=== PATIENT | male | born 1960 | race African-American/Black ===

== ENCOUNTER 2017-10-21 14:28 | Inpatient (IN) | payer OTHER ==
[2017-10-21] MEDS: FUROSEMIDE 40 MG INJ IV (15:17)
[2017-10-21] MEDS: NITROGLYCERIN 2% 1 GM OINT PKT TD (15:17)
[2017-10-21 16:21] LABS: HEMATOCRIT 35.6 % (42.0-52.0); HEMOGLOBIN 11.4 g/dl (14.0-18.0); MEAN CORPUSCULAR HEMOGLOBIN 28.9 pg (29.0-33.0); MEAN CORPUSCULAR VOLUME 90.1 fl (82.0-101.0); MEAN PLATELET VOLUME 11.3 fl (7.4-10.4); PLATELET COUNT 100 10^3/UL (140-415); RED BLOOD COUNT 3.95 10^6/ul (4.70-6.10)
[2017-10-21 16:21] LABS: WHITE BLOOD COUNT 6.6 10^3/ul (4.8-10.8)
[2017-10-21 16:27] LABS: ADD MAN DIFF? YES
[2017-10-21 16:38] LABS: INR 1.17; PROTIME 15.1 Sec (11.9-14.9); PT RATIO 1.2
[2017-10-21 16:39] LABS: PARTIAL THROMBOPLASTIN TIME 34.7 Sec (25.0-35.0)
[2017-10-21 16:47] LABS: ALANINE AMINOTRANSFERASE 35 IU/L (13-69); ALBUMIN 3.7 g/dl (3.3-4.9); ALBUMIN/GLOBULIN RATIO 0.77; ALKALINE PHOSPHATASE 102 IU/L (42-121); ANION GAP 17 (8-16); ASPARTATE AMINO TRANSFERASE 60 IU/L (15-46); BILIRUBIN,INDIRECT 0.8 mg/dl (0-1.1); BILIRUBIN,TOTAL 0.8 mg/dl (0.2-1.3); BLOOD UREA NITROGEN 18 mg/dl (7-20); CALCIUM 9.4 mg/dl (8.4-10.2); CARBON DIOXIDE 20 mmol/L (21-31); CHLORIDE 115 mmol/L (97-110); CREATININE 0.76 mg/dl (0.61-1.24); EOSINOPHILS % (M) 3 % (0-7); GLUCOSE 79 mg/dl (70-220); LYMPHOCYTES #M 2.7 10^3/ul (0.8-2.9); LYMPHOCYTES % (M) 41 % (15-51); MONOCYTE #M 0.3 10^3/ul (0.3-0.9); MONOCYTES % (M) 6 % (0-11); PLATELET ESTIMATE NORMAL; POTASSIUM 4.2 mmol/L (3.5-5.1); REACTIVE LYMPHOCYTES #M 0.2 10^3/ul (0.0-0.0); REACTIVE LYMPHOCYTES% (M) 4 % (0-0); SEGMENTED NEUTROPHILS (M) % 46 % (39-77); SMUDGE%M 9 % (0-0); SODIUM 148 mmol/L (135-144); TOTAL PROTEIN 8.5 g/dl (6.1-8.1)
[2017-10-21 16:58] LABS: B-TYPE NATRIURETIC PEPTIDE 5210 PG/ML (0-125); TROPONIN-I 0.026 ng/ml (0.00-0.12)
[2017-10-21] MEDS ORDERED: ACETAMINOPHEN 325 MG TAB PO ×2 (18:00→18:30)
[2017-10-21] MEDS ORDERED: ONDANSETRON 4 MG INJ IV ×2 (18:00→18:30)
[2017-10-21] MEDS ORDERED: MAGNESIUM HYDROXIDE 30ML CUP PO (18:30)
[2017-10-21] MEDS ORDERED: NACL 0.9% 3 ML SYG IV (18:30)
[2017-10-21] MEDS ORDERED: SALINE 0.65% 45 ML NAS SPRAY NASAL (18:30)
[2017-10-21 18:39] LABS: IRON 128 ug/dl (35-150)
[2017-10-21] MEDS: ASPIRIN 81 MG TAB PO (18:40)
[2017-10-21 18:48] LABS: % IRON SATURATION 33 % SAT (22-52); TOTAL IRON BINDING CAPACITY 392 ug/dl (241-421)
[2017-10-21] MEDS ORDERED: ALBUTEROL 0.083% (NEB) 2.5 MG/3 ML AMP HHN (19:00)
[2017-10-21 22:00] LABS: FOLATE > 20.0 ng/ml (2.8-20.0)
[2017-10-21 22:08] LABS: CREATINE KINASE 67 IU/L (23-200)
[2017-10-21 22:20] LABS: CK INDEX 1.5; TROPONIN-I 0.029 ng/ml (0.00-0.12)
[2017-10-21 22:25] LABS: CK-MB 1.02 ng/ml (0.0-2.4)
[2017-10-22] MEDS: DOCUSATE SODIUM 100 MG CAP PO (05:27)
[2017-10-22] MEDS: FUROSEMIDE 20 MG INJ IV (05:28)
[2017-10-22 07:21] LABS: B-TYPE NATRIURETIC PEPTIDE 5500 PG/ML (0-125)
[2017-10-22 07:24] LABS: TROPONIN-I 0.043 ng/ml (0.00-0.12)
[2017-10-22 08:03] LABS: CREATINE KINASE 71 IU/L (23-200)
[2017-10-22 08:12] LABS: CK INDEX 1.5
[2017-10-22 08:16] LABS: CK-MB 1.03 ng/ml (0.0-2.4)
[2017-10-22] MEDS: ASPIRIN (EC) 81 MG TAB PO (09:32)
[2017-10-22] MEDS: ATORVASTATIN 10 MG TAB PO (09:32)
[2017-10-22] MEDS: LOSARTAN 50 MG TAB PO (09:32)
[2017-10-22] MEDS: SPIRONOLACTONE 25 MG TAB PO (09:32)
[2017-10-22] MEDS: ENOXAPARIN 40 MG/0.4 ML SYG SC (09:34)
[2017-10-22 12:10] LABS: ALANINE AMINOTRANSFERASE 31 IU/L (13-69); ALBUMIN 3.5 g/dl (3.3-4.9); ALBUMIN/GLOBULIN RATIO 0.77; ALKALINE PHOSPHATASE 92 IU/L (42-121); ANION GAP 18 (8-16); ASPARTATE AMINO TRANSFERASE 57 IU/L (15-46); BILIRUBIN,INDIRECT 0.5 mg/dl (0-1.1); BILIRUBIN,TOTAL 0.5 mg/dl (0.2-1.3); BLOOD UREA NITROGEN 23 mg/dl (7-20); CARBON DIOXIDE 20 mmol/L (21-31); CHLORIDE 110 mmol/L (97-110); CREATININE 0.85 mg/dl (0.61-1.24); GLUCOSE 149 mg/dl (70-220); POTASSIUM 4.2 mmol/L (3.5-5.1); SODIUM 144 mmol/L (135-144)
[2017-10-22] MEDS: FUROSEMIDE 40 MG INJ IV (17:59)
[2017-10-23] MEDS: ZOLPIDEM 5 MG TAB PO ×2 (02:48→23:48)
[2017-10-23] MEDS: FUROSEMIDE 40 MG INJ IV (06:19)
[2017-10-23 09:53] LABS: ADD MAN DIFF? NO
[2017-10-23] MEDS: ATORVASTATIN 10 MG TAB PO (10:01)
[2017-10-23] MEDS: ASPIRIN (EC) 81 MG TAB PO (10:01)
[2017-10-23] MEDS: LOSARTAN 50 MG TAB PO (10:02)
[2017-10-23] MEDS: ENOXAPARIN 40 MG/0.4 ML SYG SC (10:06)
[2017-10-23] MEDS: SPIRONOLACTONE 25 MG TAB PO (10:07)
[2017-10-23 10:22] LABS: MAGNESIUM 1.4 mg/dl (1.7-2.5)
[2017-10-23 10:22] LABS: PHOSPHORUS 4.1 mg/dl (2.5-4.9)
[2017-10-23 10:45] LABS: BASOPHIL # 0.1 10^3/ul (0.0-0.1); EOSINOPHILS # 0.1 10^3/ul (0.0-0.5); EOSINOPHILS % 2.3 % (0.0-7.0); HEMOGLOBIN 10.9 g/dl (14.0-18.0); LYMPHOCYTES # 1.3 10^3/ul (0.8-2.9); LYMPHOCYTES % 24.2 % (15.0-51.0); MEAN CORPUSCULAR HEMOGLOBIN 29.5 pg (29.0-33.0); MEAN CORPUSCULAR VOLUME 89.2 fl (82.0-101.0); MEAN PLATELET VOLUME 12.2 fl (7.4-10.4); MONOCYTE # 0.7 10^3/ul (0.3-0.9); MONOCYTES % 12.8 % (0.0-11.0); NEUTROPHIL # 3.1 10^3/ul (1.6-7.5); NEUTROPHILS % 59.5 % (39.0-77.0); PLATELET COUNT 107 10^3/UL (140-415); RED CELL DISTRIBUTION WIDTH 14.1 % (11.5-14.5)
[2017-10-23 10:45] LABS: WHITE BLOOD COUNT 5.2 10^3/ul (4.8-10.8)
[2017-10-23 10:50] LABS: HEMOGLOBIN A1C 5.6 % (0-5.9)
[2017-10-23 11:08] LABS: ALANINE AMINOTRANSFERASE 36 IU/L (13-69); ALBUMIN 3.9 g/dl (3.3-4.9); ALBUMIN/GLOBULIN RATIO 0.82; ALKALINE PHOSPHATASE 110 IU/L (42-121); ANION GAP 19 (8-16); ASPARTATE AMINO TRANSFERASE 71 IU/L (15-46); BILIRUBIN,INDIRECT 0.5 mg/dl (0-1.1); BILIRUBIN,TOTAL 0.5 mg/dl (0.2-1.3); BLOOD UREA NITROGEN 28 mg/dl (7-20); CALCIUM 9.5 mg/dl (8.4-10.2); CARBON DIOXIDE 21 mmol/L (21-31); CHLORIDE 109 mmol/L (97-110); CREATININE 0.95 mg/dl (0.61-1.24); GLUCOSE 131 mg/dl (70-220); SODIUM 145 mmol/L (135-144); TOTAL PROTEIN 8.6 g/dl (6.1-8.1)
[2017-10-23 11:48] LABS: AMPHETAMINE/METHAMPHETAMINE Negative (NEGATIVE); BARBITURATES Negative (NEGATIVE); BENZODIAZEPINES Negative (NEGATIVE); CANNABINOIDS Negative (NEGATIVE); COCAINE Negative (NEGATIVE); OPIATES Negative (NEGATIVE)
[2017-10-23] MEDS: MAGNESIUM SULFATE 3 GM in DEXTROSE 5% 100 ML IVPB (13:52)
[2017-10-23] MEDS: MAGNESIUM SULFATE 2 GM/50 ML 50 ML IVPB (16:49)
[2017-10-23] MEDS: FUROSEMIDE 40 MG TAB PO (18:10)
[2017-10-24] MEDS: FUROSEMIDE 40 MG TAB PO ×2 (06:00→18:00)
[2017-10-24] MEDS: SPIRONOLACTONE 25 MG TAB PO (08:52)
[2017-10-24] MEDS: ATORVASTATIN 10 MG TAB PO (08:52)
[2017-10-24] MEDS: ASPIRIN (EC) 81 MG TAB PO (08:52)
[2017-10-24] MEDS: ENOXAPARIN 40 MG/0.4 ML SYG SC (08:53)
[2017-10-24] MEDS: LOSARTAN 50 MG TAB PO (08:53)
[2017-10-24 12:04] LABS: ADD MAN DIFF? NO
[2017-10-24 12:08] LABS: WHITE BLOOD COUNT 5.9 10^3/ul (4.8-10.8)
[2017-10-24 12:08] LABS: BASOPHILS % 0.5 % (0.0-2.0); EOSINOPHILS # 0.1 10^3/ul (0.0-0.5); EOSINOPHILS % 1.9 % (0.0-7.0); HEMATOCRIT 35.8 % (42.0-52.0); HEMOGLOBIN 11.4 g/dl (14.0-18.0); LYMPHOCYTES # 1.2 10^3/ul (0.8-2.9); LYMPHOCYTES % 20.6 % (15.0-51.0); MEAN CORPUSCULAR HGB CONC 31.8 g/dl (32.0-37.0); MEAN CORPUSCULAR VOLUME 91.1 fl (82.0-101.0); MEAN PLATELET VOLUME 12.5 fl (7.4-10.4); MONOCYTE # 0.9 10^3/ul (0.3-0.9); MONOCYTES % 15.5 % (0.0-11.0); NEUTROPHIL # 3.6 10^3/ul (1.6-7.5); NEUTROPHILS % 61.2 % (39.0-77.0); PLATELET COUNT 118 10^3/UL (140-415); RED BLOOD COUNT 3.93 10^6/ul (4.70-6.10)
[2017-10-24 12:32] LABS: ALANINE AMINOTRANSFERASE 38 IU/L (13-69); ALBUMIN 3.7 g/dl (3.3-4.9); ALBUMIN/GLOBULIN RATIO 0.84; ALKALINE PHOSPHATASE 106 IU/L (42-121); ANION GAP 17 (8-16); ASPARTATE AMINO TRANSFERASE 58 IU/L (15-46); BILIRUBIN,INDIRECT 0.2 mg/dl (0-1.1); BILIRUBIN,TOTAL 0.2 mg/dl (0.2-1.3); BLOOD UREA NITROGEN 31 mg/dl (7-20); CARBON DIOXIDE 22 mmol/L (21-31); CHLORIDE 107 mmol/L (97-110); CREATININE 1.01 mg/dl (0.61-1.24); GLUCOSE 81 mg/dl (70-220); POTASSIUM 4.5 mmol/L (3.5-5.1); SODIUM 141 mmol/L (135-144); TOTAL PROTEIN 8.1 g/dl (6.1-8.1)
[2017-10-24 12:33] LABS: MAGNESIUM 1.8 mg/dl (1.7-2.5)
[2017-10-24 12:33] LABS: PHOSPHORUS 3.8 mg/dl (2.5-4.9)
[2017-10-24] MEDS: MAGNESIUM SULFATE 2 GM/50 ML 50 ML IVPB (18:00)
[2017-10-24] MEDS: ZOLPIDEM 5 MG TAB PO (20:25)
[2017-10-25] MEDS: FUROSEMIDE 40 MG TAB PO ×2 (06:00→18:03)
[2017-10-25 08:02] LABS: ADD MAN DIFF? NO
[2017-10-25 08:10] LABS: BASOPHILS % 0.5 % (0.0-2.0); EOSINOPHILS # 0.2 10^3/ul (0.0-0.5); EOSINOPHILS % 2.6 % (0.0-7.0); HEMATOCRIT 33.3 % (42.0-52.0); HEMOGLOBIN 10.8 g/dl (14.0-18.0); LYMPHOCYTES # 1.3 10^3/ul (0.8-2.9); LYMPHOCYTES % 22.4 % (15.0-51.0); MEAN CORPUSCULAR HEMOGLOBIN 29.1 pg (29.0-33.0); MEAN CORPUSCULAR HGB CONC 32.4 g/dl (32.0-37.0); MEAN CORPUSCULAR VOLUME 89.8 fl (82.0-101.0); MEAN PLATELET VOLUME 12.5 fl (7.4-10.4); MONOCYTE # 0.9 10^3/ul (0.3-0.9); MONOCYTES % 15.5 % (0.0-11.0); NEUTROPHIL # 3.4 10^3/ul (1.6-7.5); NEUTROPHILS % 58.8 % (39.0-77.0); PLATELET COUNT 114 10^3/UL (140-415); RED BLOOD COUNT 3.71 10^6/ul (4.70-6.10); RED CELL DISTRIBUTION WIDTH 14.4 % (11.5-14.5)
[2017-10-25 08:10] LABS: WHITE BLOOD COUNT 5.8 10^3/ul (4.8-10.8)
[2017-10-25 08:29] LABS: ANION GAP 17 (8-16); BLOOD UREA NITROGEN 35 mg/dl (7-20); CALCIUM 9.2 mg/dl (8.4-10.2); CARBON DIOXIDE 22 mmol/L (21-31); CHLORIDE 107 mmol/L (97-110); CREATININE 0.98 mg/dl (0.61-1.24); GLUCOSE 128 mg/dl (70-220); POTASSIUM 4.2 mmol/L (3.5-5.1); SODIUM 142 mmol/L (135-144)
[2017-10-25] MEDS: ENOXAPARIN 40 MG/0.4 ML SYG SC (09:00)
[2017-10-25] MEDS: LOSARTAN 50 MG TAB PO (09:55)
[2017-10-25] MEDS: SPIRONOLACTONE 25 MG TAB PO (09:55)
[2017-10-25] MEDS: ASPIRIN (EC) 81 MG TAB PO (09:55)
[2017-10-25] MEDS: ATORVASTATIN 10 MG TAB PO (09:55)
== END 2017-10-25 18:50 | disposition home or self-care (01) | DRG 292 ==
LOC: TEL 17:45 → E/R 14:28
DX: I11.0 Hypertensive heart disease with heart failure (principal); E87.0 Hyperosmolality and hypernatremia; I42.9 Cardiomyopathy, unspecified; I50.23 Acute on chronic systolic (congestive) heart failure; D64.9 Anemia, unspecified; Z91.14 Patient's other noncompliance with medication regimen; Z87.891 Personal history of nicotine dependence
CPT/HCPCS: 36415; 71045; 76705; 80048; 80053; 80307; 82550; 82553; 82607; 82746; 83036; 83540; 83735; 83880; 84100; 84484; 85025; 85610; 85730; 93005; 96374; 99285-25; J1940

== ENCOUNTER 2018-01-04 21:02 | Inpatient (IN) | payer OTHER ==
[2018-01-04 23:11] LABS: AADO2 Arterial 40.2 mmHg (7.0-24.0); Allen Test ACCEPTAB; Arterial Blood Gas Oxygen Sat 95.9 mmHG (95.0-98.0); Arterial COHb 0.4 % (0.0-3.0); Arterial Fraction of Oxyhgb 95.3 % (93.0-99.0); Arterial HCO3 14.6 mmol/L (22.0-26.0); Arterial MetHb 0.2 % (0.0-1.5); Arterial Total Hemglobin 13.5 g/dl (12.0-18.0); Arterial pCO2 21.2 mmhg (35-45); MODE ROOM AIR; Site Right Radial
[2018-01-04] MEDS: ONDANSETRON 4 MG INJ IV (23:17)
[2018-01-04] MEDS: morphine 4 MG/ML VIAL IV (23:17)
[2018-01-04 23:32] LABS: ADD MAN DIFF? NO
[2018-01-04 23:36] LABS: WHITE BLOOD COUNT 6.5 10^3/ul (4.8-10.8)
[2018-01-04 23:36] LABS: BASOPHILS % 0.6 % (0.0-2.0); EOSINOPHILS % 0.2 % (0.0-7.0); HEMOGLOBIN 12.9 g/dl (14.0-18.0); LYMPHOCYTES % 14.6 % (15.0-51.0); MEAN CORPUSCULAR HEMOGLOBIN 29.9 pg (29.0-33.0); MEAN CORPUSCULAR HGB CONC 32.3 g/dl (32.0-37.0); MEAN CORPUSCULAR VOLUME 92.8 fl (82.0-101.0); MEAN PLATELET VOLUME 10.5 fl (7.4-10.4); MONOCYTE # 0.8 10^3/ul (0.3-0.9); MONOCYTES % 11.7 % (0.0-11.0); NEUTROPHIL # 4.7 10^3/ul (1.6-7.5); NEUTROPHILS % 72.3 % (39.0-77.0); PLATELET COUNT 187 10^3/UL (140-415); RED BLOOD COUNT 4.31 10^6/ul (4.70-6.10); RED CELL DISTRIBUTION WIDTH 18.1 % (11.5-14.5)
[2018-01-04 23:56] LABS: INR 1.18; PROTIME 15.2 Sec (11.9-14.9); PT RATIO 1.2
[2018-01-04 23:57] LABS: PARTIAL THROMBOPLASTIN TIME 32.2 Sec (25.0-35.0)
[2018-01-05 00:11] LABS: LACTIC ACID 3.1 mmol/L (0.5-2.0)
[2018-01-05] MEDS: SODIUM CHLORIDE 0.9% 1L BAG IV* (00:30)
[2018-01-05] MEDS: CEFEPIME 2GM/50 ML (PMX) 50 ML IVPB (00:36)
[2018-01-05 00:49] LABS: ALANINE AMINOTRANSFERASE 33 IU/L (13-69); ALBUMIN 3.8 g/dl (3.3-4.9); ALBUMIN/GLOBULIN RATIO 0.79; ALKALINE PHOSPHATASE 109 IU/L (42-121); ANION GAP 16 (8-16); ASPARTATE AMINO TRANSFERASE 52 IU/L (15-46); BILIRUBIN,INDIRECT 1.1 mg/dl (0-1.1); BILIRUBIN,TOTAL 1.1 mg/dl (0.2-1.3); BLOOD UREA NITROGEN 20 mg/dl (7-20); CALCIUM 9.2 mg/dl (8.4-10.2); CARBON DIOXIDE 20 mmol/L (21-31); CHLORIDE 110 mmol/L (97-110); CREATININE 1.02 mg/dl (0.61-1.24); GLUCOSE 97 mg/dl (70-220); POTASSIUM 4.3 mmol/L (3.5-5.1); SODIUM 142 mmol/L (135-144); TOTAL PROTEIN 8.6 g/dl (6.1-8.1)
[2018-01-05] MEDS: VANCOMYCIN 1 GM (PMX) 250 ML IVPB (01:44)
[2018-01-05] MEDS: ACETAMINOPHEN 500 MG TAB PO (02:17)
[2018-01-05 02:39] LABS: LACTIC ACID 2.9 mmol/L (0.5-2.0)
[2018-01-05] MEDS ORDERED: NITROGLYCERIN (SL) 0.4 MG TAB SL (06:00)
[2018-01-05] MEDS ORDERED: NACL 0.9% 3 ML SYG IV (06:00)
[2018-01-05] MEDS ORDERED: ALBUTEROL/IPRATROPIUM (NEB) 3 ML AMP HHN (06:00)
[2018-01-05 06:34] LABS: ADD MAN DIFF? NO
[2018-01-05 06:37] LABS: BASOPHIL # 0.1 10^3/ul (0.0-0.1); BASOPHILS % 0.8 % (0.0-2.0); EOSINOPHILS % 0.3 % (0.0-7.0); HEMATOCRIT 39.8 % (42.0-52.0); HEMOGLOBIN 12.8 g/dl (14.0-18.0); LYMPHOCYTES # 1.3 10^3/ul (0.8-2.9); LYMPHOCYTES % 17.6 % (15.0-51.0); MEAN CORPUSCULAR HEMOGLOBIN 29.9 pg (29.0-33.0); MEAN CORPUSCULAR HGB CONC 32.2 g/dl (32.0-37.0); MEAN PLATELET VOLUME 10.9 fl (7.4-10.4); MONOCYTE # 1.1 10^3/ul (0.3-0.9); MONOCYTES % 14.2 % (0.0-11.0); NEUTROPHILS % 66.7 % (39.0-77.0); PLATELET COUNT 171 10^3/UL (140-415); RED BLOOD COUNT 4.28 10^6/ul (4.70-6.10); RED CELL DISTRIBUTION WIDTH 18.5 % (11.5-14.5)
[2018-01-05 06:37] LABS: WHITE BLOOD COUNT 7.4 10^3/ul (4.8-10.8)
[2018-01-05 06:55] LABS: CREATINE KINASE 173 IU/L (23-200)
[2018-01-05 06:57] LABS: ALANINE AMINOTRANSFERASE 25 IU/L (13-69); ALBUMIN 3.8 g/dl (3.3-4.9); ALBUMIN/GLOBULIN RATIO 0.77; ALKALINE PHOSPHATASE 107 IU/L (42-121); ANION GAP 21 (8-16); ASPARTATE AMINO TRANSFERASE 57 IU/L (15-46); BILIRUBIN,INDIRECT 1.4 mg/dl (0-1.1); BILIRUBIN,TOTAL 1.6 mg/dl (0.2-1.3); BLOOD UREA NITROGEN 23 mg/dl (7-20); CALCIUM 8.9 mg/dl (8.4-10.2); CARBON DIOXIDE 15 mmol/L (21-31); CHLORIDE 111 mmol/L (97-110); CREATININE 1.16 mg/dl (0.61-1.24); GLUCOSE 74 mg/dl (70-220); POTASSIUM 4.7 mmol/L (3.5-5.1); SODIUM 142 mmol/L (135-144); TOTAL PROTEIN 8.7 g/dl (6.1-8.1)
[2018-01-05 07:08] LABS: CK INDEX 1.1; CK-MB 1.88 ng/ml (0.0-2.4); TROPONIN-I 0.076 ng/ml (0.00-0.12)
[2018-01-05] MEDS: HEPARIN 5,000 UNIT/0.5 ML VIAL SC ×2 (09:00→20:29)
[2018-01-05] MEDS: ASPIRIN (EC) 81 MG TAB PO (09:15)
[2018-01-05] MEDS: FUROSEMIDE 40 MG TAB PO ×2 (09:16→16:42)
[2018-01-05] MEDS: LOSARTAN 50 MG TAB PO (09:16)
[2018-01-05] MEDS: SPIRONOLACTONE 25 MG TAB PO (09:16)
[2018-01-05] MEDS: LEVOFLOXACIN 500MG/D5W (PMX) 100 ML IVPB (09:17)
[2018-01-05] MEDS: morphine 2 MG INJ IV (10:53)
[2018-01-05] MEDS ORDERED: HYDROmorphONE 0.5 MG/0.5 ML SYG IV (12:00)
[2018-01-05] MEDS: HYDROmorphONE 2 MG/ML SYG IV (12:05)
[2018-01-05] MEDS: ONDANSETRON 4 MG INJ IV ×2 (12:05→20:09)
[2018-01-05 14:26] LABS: LIPASE 67 U/L (23-300)
[2018-01-05 15:39] LABS: CREATINE KINASE 149 IU/L (23-200)
[2018-01-05 15:47] LABS: LIPASE 55 U/L (23-300)
[2018-01-05 15:52] LABS: CK INDEX 1.3; TROPONIN-I 0.062 ng/ml (0.00-0.12)
[2018-01-05 16:12] LABS: CK-MB 1.89 ng/ml (0.0-2.4)
[2018-01-05] MEDS: SOD CHLORIDE 0.9% 1,000 ML IV (16:40)
[2018-01-05] MEDS: PIPER-TAZO 3.375 GM IV (PMX) 100 ML IVPB ×2 (16:40→22:19)
[2018-01-05] MEDS ORDERED: VANCOMYCIN IV PER PHARMACY XX (17:30)
[2018-01-05] MEDS: VANCOMYCIN 1 GM 250 ML IVPB (20:08)
[2018-01-05] MEDS: ATORVASTATIN 10 MG TAB PO (20:30)
[2018-01-06 01:56] LABS: ADD UMIC YES; UR ASCORBIC ACID NEGATIVE (NEGATIVE); UR BILIRUBIN (Dip) NEGATIVE (NEGATIVE); UR BLOOD (Dip) NEGATIVE (NEGATIVE); UR CLARITY SLIGHTLY CLOUDY (CLEAR); UR COLOR AMBER (YELLOW); UR GLUCOSE (Dip) NEGATIVE (NEGATIVE); UR KETONES (Dip) TRACE mg/dL (NEGATIVE); UR LEUKOCYTE ESTERASE (Dip) NEGATIVE Leu/ul (NEGATIVE); UR NITRITE (Dip) NEGATIVE (NEGATIVE); UR RBC 1 /HPF (0-5); UR SQUAMOUS EPITHELIAL CELL FEW /HPF (FEW); UR TOTAL PROTEIN (Dip) 2+ mg/dl (NEGATIVE); UR UROBILINOGEN (Dip) 1+ mg/dL (NEGATIVE); UR WBC 3 /HPF (0-5)
[2018-01-06] MEDS: ONDANSETRON 4 MG INJ IV (04:27)
[2018-01-06] MEDS: HYDROmorphONE 2 MG/ML SYG IV (04:30)
[2018-01-06] MEDS: SOD CHLORIDE 0.9% 1,000 ML IV ×4 (05:50→20:00)
[2018-01-06 05:51] LABS: WHITE BLOOD COUNT 6.6 10^3/ul (4.8-10.8)
[2018-01-06 05:51] LABS: ADD MAN DIFF? NO; BASOPHILS % 0.3 % (0.0-2.0); HEMATOCRIT 37.8 % (42.0-52.0); HEMOGLOBIN 12.2 g/dl (14.0-18.0); LYMPHOCYTES % 15.4 % (15.0-51.0); MEAN CORPUSCULAR HEMOGLOBIN 29.7 pg (29.0-33.0); MEAN CORPUSCULAR HGB CONC 32.3 g/dl (32.0-37.0); MEAN PLATELET VOLUME 11.5 fl (7.4-10.4); MONOCYTES % 14.7 % (0.0-11.0); NEUTROPHIL # 4.6 10^3/ul (1.6-7.5); NEUTROPHILS % 69.1 % (39.0-77.0); PLATELET COUNT 180 10^3/UL (140-415); RED BLOOD COUNT 4.11 10^6/ul (4.70-6.10); RED CELL DISTRIBUTION WIDTH 18.2 % (11.5-14.5)
[2018-01-06] MEDS: FUROSEMIDE 40 MG TAB PO (05:57)
[2018-01-06] MEDS: PIPER-TAZO 3.375 GM IV (PMX) 100 ML IVPB ×3 (05:57→21:57)
[2018-01-06 06:24] LABS: LACTIC ACID 3.5 mmol/L (0.5-2.0)
[2018-01-06 06:27] LABS: ANION GAP 14 (8-16); BLOOD UREA NITROGEN 43 mg/dl (7-20); CALCIUM 8.2 mg/dl (8.4-10.2); CARBON DIOXIDE 19 mmol/L (21-31); CHLORIDE 106 mmol/L (97-110); CREATININE 2.07 mg/dl (0.61-1.24); GLUCOSE 129 mg/dl (70-220); MAGNESIUM 1.2 mg/dl (1.7-2.5); PHOSPHORUS 4.8 mg/dl (2.5-4.9); POTASSIUM 5.5 mmol/L (3.5-5.1); SODIUM 133 mmol/L (135-144)
[2018-01-06] MEDS: VANCOMYCIN 1 GM 250 ML IVPB ×2 (06:34→18:25)
[2018-01-06] MEDS: LOSARTAN 50 MG TAB PO (09:00)
[2018-01-06] MEDS: HEPARIN 5,000 UNIT/0.5 ML VIAL SC ×2 (09:00→21:58)
[2018-01-06] MEDS: ASPIRIN (EC) 81 MG TAB PO (09:07)
[2018-01-06] MEDS: SPIRONOLACTONE 25 MG TAB PO (09:07)
[2018-01-06] MEDS: NICOTINE (21 MG/24 HR) PATCH TRANSDERM (09:08)
[2018-01-06] MEDS: MAGNESIUM SULFATE 4 GM/100 ML 100 ML IVPB (14:03)
[2018-01-06 17:25] LABS: ANION GAP 16 (8-16); BLOOD UREA NITROGEN 56 mg/dl (7-20); CALCIUM 7.7 mg/dl (8.4-10.2); CARBON DIOXIDE 17 mmol/L (21-31); CHLORIDE 104 mmol/L (97-110); CREATININE 2.46 mg/dl (0.61-1.24); GLUCOSE 120 mg/dl (70-220); POTASSIUM 4.9 mmol/L (3.5-5.1); SODIUM 132 mmol/L (135-144)
[2018-01-06 17:30] LABS: VANCOMYCIN,TROUGH 12.3 ug/ml (10.0-20.0)
[2018-01-06] MEDS: NORepinephrine 8MG/250 ML (PMX 250 ML IV (17:35)
[2018-01-06] MEDS: ATORVASTATIN 10 MG TAB PO (21:57)
[2018-01-06] MEDS: ACETAMINOPHEN 325 MG TAB PO (22:07)
[2018-01-07 06:09] LABS: ADD MAN DIFF? NO
[2018-01-07] MEDS: VANCOMYCIN 1 GM 250 ML IVPB (06:12)
[2018-01-07] MEDS: PIPER-TAZO 3.375 GM IV (PMX) 100 ML IVPB (06:12)
[2018-01-07] MEDS: ACETAMINOPHEN 325 MG TAB PO (06:12)
[2018-01-07] MEDS: SOD CHLORIDE 0.9% 1,000 ML IV (06:16)
[2018-01-07 06:18] LABS: BASOPHILS % 0.4 % (0.0-2.0); EOSINOPHILS # 0.1 10^3/ul (0.0-0.5); EOSINOPHILS % 1.1 % (0.0-7.0); HEMATOCRIT 36.1 % (42.0-52.0); HEMOGLOBIN 11.6 g/dl (14.0-18.0); LYMPHOCYTES # 1.5 10^3/ul (0.8-2.9); LYMPHOCYTES % 18.7 % (15.0-51.0); MEAN CORPUSCULAR HEMOGLOBIN 29.5 pg (29.0-33.0); MEAN CORPUSCULAR HGB CONC 32.1 g/dl (32.0-37.0); MEAN CORPUSCULAR VOLUME 91.9 fl (82.0-101.0); MEAN PLATELET VOLUME 11.5 fl (7.4-10.4); MONOCYTES % 12.9 % (0.0-11.0); NEUTROPHIL # 5.4 10^3/ul (1.6-7.5); NEUTROPHILS % 66.5 % (39.0-77.0); PLATELET COUNT 174 10^3/UL (140-415); RED BLOOD COUNT 3.93 10^6/ul (4.70-6.10); RED CELL DISTRIBUTION WIDTH 17.7 % (11.5-14.5)
[2018-01-07 06:23] LABS: PHOSPHORUS 3.1 mg/dl (2.5-4.9)
[2018-01-07 06:33] LABS: ANION GAP 12 (8-16); BLOOD UREA NITROGEN 59 mg/dl (7-20); CALCIUM 7.7 mg/dl (8.4-10.2); CARBON DIOXIDE 22 mmol/L (21-31); CHLORIDE 105 mmol/L (97-110); CREATININE 2.35 mg/dl (0.61-1.24); GLUCOSE 126 mg/dl (70-220); POTASSIUM 4.3 mmol/L (3.5-5.1); SODIUM 135 mmol/L (135-144)
[2018-01-07 06:45] LABS: LACTIC ACID 2.2 mmol/L (0.5-2.0)
[2018-01-07] MEDS: NICOTINE (21 MG/24 HR) PATCH TRANSDERM (08:58)
[2018-01-07] MEDS: ASPIRIN (EC) 81 MG TAB PO (08:59)
[2018-01-07] MEDS: HEPARIN 5,000 UNIT/0.5 ML VIAL SC ×2 (09:00→21:21)
[2018-01-07] MEDS: CEFEPIME 1GM/50 ML (PMX) 50 ML IVPB (11:00)
[2018-01-07] MEDS: SOD CHLORIDE 0.45% 1,000 ML IV ×2 (11:00→21:24)
[2018-01-07] MEDS: LINEZOLID 600 MG/D5W (PMX) 300 ML IVPB ×2 (12:30→22:17)
[2018-01-07] MEDS: HYDROmorphONE 2 MG/ML SYG IV (15:54)
[2018-01-07] MEDS: ATORVASTATIN 10 MG TAB PO (21:17)
[2018-01-08] MEDS: SOD CHLORIDE 0.45% 1,000 ML IV ×2 (06:30→16:30)
[2018-01-08 07:29] LABS: ADD MAN DIFF? NO
[2018-01-08 07:32] LABS: WHITE BLOOD COUNT 6.5 10^3/ul (4.8-10.8)
[2018-01-08 07:32] LABS: BASOPHILS % 0.3 % (0.0-2.0); EOSINOPHILS # 0.2 10^3/ul (0.0-0.5); EOSINOPHILS % 2.3 % (0.0-7.0); HEMATOCRIT 34.5 % (42.0-52.0); HEMOGLOBIN 11.3 g/dl (14.0-18.0); LYMPHOCYTES # 1.6 10^3/ul (0.8-2.9); LYMPHOCYTES % 24.3 % (15.0-51.0); MEAN CORPUSCULAR HEMOGLOBIN 30.1 pg (29.0-33.0); MEAN CORPUSCULAR HGB CONC 32.8 g/dl (32.0-37.0); MEAN CORPUSCULAR VOLUME 91.8 fl (82.0-101.0); MEAN PLATELET VOLUME 11.2 fl (7.4-10.4); MONOCYTE # 0.8 10^3/ul (0.3-0.9); MONOCYTES % 11.9 % (0.0-11.0); NEUTROPHIL # 3.9 10^3/ul (1.6-7.5); NEUTROPHILS % 60.6 % (39.0-77.0); PLATELET COUNT 143 10^3/UL (140-415); RED BLOOD COUNT 3.76 10^6/ul (4.70-6.10); RED CELL DISTRIBUTION WIDTH 18.1 % (11.5-14.5)
[2018-01-08 07:51] LABS: LACTIC ACID 1.7 mmol/L (0.5-2.0)
[2018-01-08 07:54] LABS: ANION GAP 11 (8-16); BLOOD UREA NITROGEN 47 mg/dl (7-20); CALCIUM 7.7 mg/dl (8.4-10.2); CARBON DIOXIDE 21 mmol/L (21-31); CHLORIDE 106 mmol/L (97-110); CREATININE 1.55 mg/dl (0.61-1.24); GLUCOSE 127 mg/dl (70-220); POTASSIUM 4.2 mmol/L (3.5-5.1); SODIUM 134 mmol/L (135-144)
[2018-01-08] MEDS: ASPIRIN (EC) 81 MG TAB PO (09:19)
[2018-01-08] MEDS: HEPARIN 5,000 UNIT/0.5 ML VIAL SC ×2 (09:23→21:37)
[2018-01-08] MEDS: NICOTINE (21 MG/24 HR) PATCH TRANSDERM (09:23)
[2018-01-08] MEDS: LINEZOLID 600 MG/D5W (PMX) 300 ML IVPB (10:47)
[2018-01-08] MEDS: CEFEPIME 1GM/50 ML (PMX) 50 ML IVPB (13:18)
[2018-01-08] MEDS: HYDROCODONE/APAP (7.5/325) TAB PO (15:03)
[2018-01-08] MEDS: ZYVOX 600 MG TAB PO (21:35)
[2018-01-08] MEDS: ATORVASTATIN 10 MG TAB PO (21:35)
[2018-01-09] MEDS: SOD CHLORIDE 0.45% 1,000 ML IV (02:30)
[2018-01-09] MEDS: HYDROCODONE/APAP (7.5/325) TAB PO ×2 (06:34→21:47)
[2018-01-09 07:45] LABS: ADD MAN DIFF? NO
[2018-01-09 07:49] LABS: BASOPHILS % 0.6 % (0.0-2.0); EOSINOPHILS # 0.2 10^3/ul (0.0-0.5); EOSINOPHILS % 2.5 % (0.0-7.0); HEMATOCRIT 36.4 % (42.0-52.0); HEMOGLOBIN 11.7 g/dl (14.0-18.0); LYMPHOCYTES # 1.6 10^3/ul (0.8-2.9); LYMPHOCYTES % 24.8 % (15.0-51.0); MEAN CORPUSCULAR HEMOGLOBIN 29.8 pg (29.0-33.0); MEAN CORPUSCULAR HGB CONC 32.1 g/dl (32.0-37.0); MEAN CORPUSCULAR VOLUME 92.9 fl (82.0-101.0); MEAN PLATELET VOLUME 11.3 fl (7.4-10.4); MONOCYTE # 0.7 10^3/ul (0.3-0.9); NEUTROPHIL # 3.8 10^3/ul (1.6-7.5); NEUTROPHILS % 60.6 % (39.0-77.0); PLATELET COUNT 147 10^3/UL (140-415); RED BLOOD COUNT 3.92 10^6/ul (4.70-6.10); RED CELL DISTRIBUTION WIDTH 18.4 % (11.5-14.5)
[2018-01-09 07:49] LABS: WHITE BLOOD COUNT 6.3 10^3/ul (4.8-10.8)
[2018-01-09 08:09] LABS: ANION GAP 13 (8-16); BLOOD UREA NITROGEN 44 mg/dl (7-20); CALCIUM 8.5 mg/dl (8.4-10.2); CARBON DIOXIDE 22 mmol/L (21-31); CHLORIDE 107 mmol/L (97-110); GLUCOSE 114 mg/dl (70-220); POTASSIUM 5.1 mmol/L (3.5-5.1); SODIUM 137 mmol/L (135-144)
[2018-01-09] MEDS: HEPARIN 5,000 UNIT/0.5 ML VIAL SC ×2 (09:07→21:47)
[2018-01-09] MEDS: ZYVOX 600 MG TAB PO (09:08)
[2018-01-09] MEDS: NICOTINE (21 MG/24 HR) PATCH TRANSDERM (09:08)
[2018-01-09] MEDS: ASPIRIN (EC) 81 MG TAB PO (09:09)
[2018-01-09] MEDS: ATORVASTATIN 10 MG TAB PO (21:43)
[2018-01-10] MEDS ORDERED: LEVOFLOXACIN 750 MG TABLET PO (06:00)
[2018-01-10] MEDS: LEVOFLOXACIN 750 MG TABLET PO (06:02)
[2018-01-10] MEDS: HYDROCODONE/APAP (7.5/325) TAB PO (06:08)
[2018-01-10] MEDS: ONDANSETRON 4 MG INJ IV (06:10)
[2018-01-10 06:21] LABS: ADD MAN DIFF? NO
[2018-01-10 06:38] LABS: BASOPHILS % 0.4 % (0.0-2.0); EOSINOPHILS # 0.3 10^3/ul (0.0-0.5); EOSINOPHILS % 4.2 % (0.0-7.0); HEMATOCRIT 36.6 % (42.0-52.0); HEMOGLOBIN 11.5 g/dl (14.0-18.0); LYMPHOCYTES # 1.9 10^3/ul (0.8-2.9); LYMPHOCYTES % 27.2 % (15.0-51.0); MEAN CORPUSCULAR HEMOGLOBIN 29.2 pg (29.0-33.0); MEAN CORPUSCULAR HGB CONC 31.4 g/dl (32.0-37.0); MEAN CORPUSCULAR VOLUME 92.9 fl (82.0-101.0); MEAN PLATELET VOLUME 11.7 fl (7.4-10.4); MONOCYTE # 0.7 10^3/ul (0.3-0.9); MONOCYTES % 10.7 % (0.0-11.0); NEUTROPHIL # 3.9 10^3/ul (1.6-7.5); NEUTROPHILS % 56.9 % (39.0-77.0); PLATELET COUNT 164 10^3/UL (140-415); RED BLOOD COUNT 3.94 10^6/ul (4.70-6.10); RED CELL DISTRIBUTION WIDTH 17.9 % (11.5-14.5)
[2018-01-10 06:38] LABS: WHITE BLOOD COUNT 6.8 10^3/ul (4.8-10.8)
[2018-01-10 07:03] LABS: ANION GAP 15 (8-16); BLOOD UREA NITROGEN 39 mg/dl (7-20); CALCIUM 8.9 mg/dl (8.4-10.2); CARBON DIOXIDE 19 mmol/L (21-31); CHLORIDE 110 mmol/L (97-110); GLUCOSE 100 mg/dl (70-220); POTASSIUM 5.1 mmol/L (3.5-5.1); SODIUM 139 mmol/L (135-144)
[2018-01-10] MEDS: NICOTINE (21 MG/24 HR) PATCH TRANSDERM (09:00)
[2018-01-10] MEDS: ASPIRIN (EC) 81 MG TAB PO (09:41)
[2018-01-10] MEDS: LOSARTAN 25 MG TAB PO (09:41)
[2018-01-10] MEDS: HEPARIN 5,000 UNIT/0.5 ML VIAL SC (09:44)
== END 2018-01-10 15:10 | disposition home or self-care (01) | DRG 871 ==
LOC: ICU 01-06 12:53 → MS4 01-07 14:57 → E/R 21:02 → MS3 01-05 01:35 → MS2 01-09 23:35
DX: A41.9 Sepsis, unspecified organism (principal); R65.21 Severe sepsis with septic shock; E87.2 Acidosis; I50.22 Chronic systolic (congestive) heart failure; I42.0 Dilated cardiomyopathy; N17.9 Acute kidney failure, unspecified; K86.1 Other chronic pancreatitis; R78.81 Bacteremia; I11.0 Hypertensive heart disease with heart failure; J44.9 Chronic obstructive pulmonary disease, unspecified; F17.200 Nicotine dependence, unspecified, uncomplicated; R07.89 Other chest pain; I95.9 Hypotension, unspecified; K80.20 Calculus of gallbladder without cholecystitis without obstruction; Z59.0 Homelessness; B95.8 Unspecified staphylococcus as the cause of diseases classified elsewhere
CPT/HCPCS: 36415; 36600; 71045; 76705; 78226; 80048; 80053; 80202; 81001; 82550; 82553; 82803; 83605; 83690; 83735; 84100; 84484; 85025; 85610; 85730; 87040; 87086; 87400; 93005; 93306; 96374; 96375; 99291-25

== ENCOUNTER 2018-01-11 18:07 | Inpatient (IN) | payer OTHER ==
[2018-01-11] MEDS: FUROSEMIDE 20 MG INJ IV (19:05)
[2018-01-11 19:06] LABS: ADD MAN DIFF? NO
[2018-01-11 19:12] LABS: BASOPHILS % 0.4 % (0.0-2.0); EOSINOPHILS % 0.1 % (0.0-7.0); HEMATOCRIT 36.4 % (42.0-52.0); LYMPHOCYTES # 0.9 10^3/ul (0.8-2.9); LYMPHOCYTES % 11.7 % (15.0-51.0); MEAN CORPUSCULAR HEMOGLOBIN 30.3 pg (29.0-33.0); MEAN CORPUSCULAR VOLUME 91.9 fl (82.0-101.0); MEAN PLATELET VOLUME 10.9 fl (7.4-10.4); MONOCYTE # 0.7 10^3/ul (0.3-0.9); MONOCYTES % 9.4 % (0.0-11.0); NEUTROPHIL # 5.7 10^3/ul (1.6-7.5); PLATELET COUNT 193 10^3/UL (140-415); RED BLOOD COUNT 3.96 10^6/ul (4.70-6.10); RED CELL DISTRIBUTION WIDTH 17.5 % (11.5-14.5)
[2018-01-11 19:12] LABS: WHITE BLOOD COUNT 7.4 10^3/ul (4.8-10.8)
[2018-01-11 19:29] LABS: ANION GAP 11 (8-16); BLOOD UREA NITROGEN 31 mg/dl (7-20); CARBON DIOXIDE 25 mmol/L (21-31); CHLORIDE 107 mmol/L (97-110); CREATININE 1.09 mg/dl (0.61-1.24); GLUCOSE 150 mg/dl (70-220); POTASSIUM 4.8 mmol/L (3.5-5.1); SODIUM 138 mmol/L (135-144)
[2018-01-12 03:32] LABS: AMPHETAMINE/METHAMPHETAMINE Negative (NEGATIVE); BARBITURATES Negative (NEGATIVE); BENZODIAZEPINES Negative (NEGATIVE); CANNABINOIDS Negative (NEGATIVE); COCAINE Negative (NEGATIVE); OPIATES Positive (NEGATIVE)
[2018-01-12] MEDS: FUROSEMIDE 20 MG INJ IV (05:34)
[2018-01-12] MEDS: ATORVASTATIN 10 MG TAB PO (08:33)
[2018-01-12] MEDS: ASPIRIN (EC) 81 MG TAB PO (08:33)
[2018-01-12] MEDS: LOSARTAN 25 MG TAB PO (08:34)
[2018-01-12] MEDS: NICOTINE (21 MG/24 HR) PATCH TRANSDERM (08:38)
[2018-01-12 08:43] LABS: ADD MAN DIFF? NO
[2018-01-12 08:50] LABS: BASOPHILS % 0.4 % (0.0-2.0); EOSINOPHILS # 0.1 10^3/ul (0.0-0.5); EOSINOPHILS % 1.5 % (0.0-7.0); HEMATOCRIT 33.3 % (42.0-52.0); HEMOGLOBIN 10.8 g/dl (14.0-18.0); LYMPHOCYTES # 1.3 10^3/ul (0.8-2.9); LYMPHOCYTES % 16.4 % (15.0-51.0); MEAN CORPUSCULAR HEMOGLOBIN 29.7 pg (29.0-33.0); MEAN CORPUSCULAR HGB CONC 32.4 g/dl (32.0-37.0); MEAN CORPUSCULAR VOLUME 91.5 fl (82.0-101.0); MEAN PLATELET VOLUME 11.3 fl (7.4-10.4); MONOCYTE # 1.1 10^3/ul (0.3-0.9); MONOCYTES % 13.5 % (0.0-11.0); NEUTROPHIL # 5.4 10^3/ul (1.6-7.5); NEUTROPHILS % 67.9 % (39.0-77.0); PLATELET COUNT 162 10^3/UL (140-415); RED BLOOD COUNT 3.64 10^6/ul (4.70-6.10); RED CELL DISTRIBUTION WIDTH 17.7 % (11.5-14.5)
[2018-01-12 09:17] LABS: ALANINE AMINOTRANSFERASE 127 IU/L (13-69); ALBUMIN 3.5 g/dl (3.3-4.9); ALBUMIN/GLOBULIN RATIO 0.76; ALKALINE PHOSPHATASE 104 IU/L (42-121); ANION GAP 16 (8-16); ASPARTATE AMINO TRANSFERASE 152 IU/L (15-46); BILIRUBIN,INDIRECT 0.4 mg/dl (0-1.1); BILIRUBIN,TOTAL 0.4 mg/dl (0.2-1.3); BLOOD UREA NITROGEN 38 mg/dl (7-20); CALCIUM 8.8 mg/dl (8.4-10.2); CARBON DIOXIDE 25 mmol/L (21-31); CHLORIDE 104 mmol/L (97-110); CREATININE 1.14 mg/dl (0.61-1.24); GLUCOSE 133 mg/dl (70-220); POTASSIUM 4.5 mmol/L (3.5-5.1); SODIUM 140 mmol/L (135-144); TOTAL PROTEIN 8.1 g/dl (6.1-8.1)
[2018-01-12] MEDS: LEVOFLOXACIN 750 MG TABLET PO (15:00)
[2018-01-12] MEDS: FUROSEMIDE 40 MG TAB PO (17:14)
[2018-01-12 20:06] LABS: ADD UMIC YES; UR ASCORBIC ACID NEGATIVE (NEGATIVE); UR BILIRUBIN (Dip) NEGATIVE (NEGATIVE); UR BLOOD (Dip) 3+ mg/dL (NEGATIVE); UR CLARITY CLEAR (CLEAR); UR COLOR YELLOW (YELLOW); UR GLUCOSE (Dip) 1+ mg/dL (NEGATIVE); UR KETONES (Dip) NEGATIVE (NEGATIVE); UR LEUKOCYTE ESTERASE (Dip) NEGATIVE Leu/ul (NEGATIVE); UR NITRITE (Dip) NEGATIVE (NEGATIVE); UR RBC > 182 /HPF (0-5); UR SPECIFIC GRAVITY (Dip) 1.014 (1.003-1.030); UR TOTAL PROTEIN (Dip) 1+ mg/dl (NEGATIVE); UR UROBILINOGEN (Dip) NEGATIVE (NEGATIVE); UR WBC 8 /HPF (0-5)
[2018-01-13] MEDS: FUROSEMIDE 40 MG TAB PO ×2 (06:24→17:32)
[2018-01-13] MEDS: LEVOFLOXACIN 750 MG TABLET PO (06:24)
[2018-01-13] MEDS: ATORVASTATIN 10 MG TAB PO (08:44)
[2018-01-13] MEDS: LOSARTAN 25 MG TAB PO (08:45)
[2018-01-13] MEDS: ASPIRIN (EC) 81 MG TAB PO (08:45)
[2018-01-13] MEDS: NICOTINE (21 MG/24 HR) PATCH TRANSDERM (08:46)
[2018-01-13 09:16] LABS: ALANINE AMINOTRANSFERASE 106 IU/L (13-69); ALBUMIN 3.3 g/dl (3.3-4.9); ALKALINE PHOSPHATASE 105 IU/L (42-121); ASPARTATE AMINO TRANSFERASE 109 IU/L (15-46); BILIRUBIN,INDIRECT 0.3 mg/dl (0-1.1); BILIRUBIN,TOTAL 0.3 mg/dl (0.2-1.3); TOTAL PROTEIN 7.7 g/dl (6.1-8.1)
[2018-01-13 09:26] LABS: ANION GAP 12 (8-16); BLOOD UREA NITROGEN 36 mg/dl (7-20); CALCIUM 9.2 mg/dl (8.4-10.2); CARBON DIOXIDE 30 mmol/L (21-31); CHLORIDE 103 mmol/L (97-110); CREATININE 1.15 mg/dl (0.61-1.24); GLUCOSE 115 mg/dl (70-220); MAGNESIUM 1.3 mg/dl (1.7-2.5); PHOSPHORUS 3.4 mg/dl (2.5-4.9); POTASSIUM 4.7 mmol/L (3.5-5.1); SODIUM 140 mmol/L (135-144)
[2018-01-13] MEDS: PANTOPRAZOLE (EC) 40 MG TAB PO (17:31)
[2018-01-13] MEDS ORDERED: PANTOPRAZOLE 40 MG INJ IV (18:00)
[2018-01-14] MEDS: LEVOFLOXACIN 750 MG TABLET PO (05:11)
[2018-01-14] MEDS: PANTOPRAZOLE (EC) 40 MG TAB PO ×2 (05:11→17:39)
[2018-01-14] MEDS: FUROSEMIDE 40 MG TAB PO ×2 (05:12→17:39)
[2018-01-14 06:44] LABS: ALANINE AMINOTRANSFERASE 94 IU/L (13-69); ALBUMIN 3.4 g/dl (3.3-4.9); ALBUMIN/GLOBULIN RATIO 0.77; ALKALINE PHOSPHATASE 110 IU/L (42-121); ANION GAP 13 (8-16); ASPARTATE AMINO TRANSFERASE 86 IU/L (15-46); BILIRUBIN,INDIRECT 0.2 mg/dl (0-1.1); BILIRUBIN,TOTAL 0.2 mg/dl (0.2-1.3); BLOOD UREA NITROGEN 35 mg/dl (7-20); CALCIUM 9.3 mg/dl (8.4-10.2); CARBON DIOXIDE 27 mmol/L (21-31); CHLORIDE 105 mmol/L (97-110); CREATININE 1.15 mg/dl (0.61-1.24); GLUCOSE 108 mg/dl (70-220); MAGNESIUM 1.4 mg/dl (1.7-2.5); PHOSPHORUS 3.6 mg/dl (2.5-4.9); POTASSIUM 4.4 mmol/L (3.5-5.1); SODIUM 141 mmol/L (135-144); TOTAL PROTEIN 7.8 g/dl (6.1-8.1)
[2018-01-14] MEDS: ATORVASTATIN 10 MG TAB PO (08:16)
[2018-01-14] MEDS: ASPIRIN (EC) 81 MG TAB PO (08:16)
[2018-01-14] MEDS: LOSARTAN 25 MG TAB PO (08:16)
[2018-01-14] MEDS: NICOTINE (21 MG/24 HR) PATCH TRANSDERM (08:17)
[2018-01-14] MEDS: MAGNESIUM SULFATE 3 GM in DEXTROSE 5% 100 ML IVPB (11:47)
[2018-01-14] MEDS: HYDROCODONE/APAP (5/325) TAB PO (18:48)
[2018-01-15] MEDS: PANTOPRAZOLE (EC) 40 MG TAB PO ×2 (05:36→18:08)
[2018-01-15] MEDS: LEVOFLOXACIN 750 MG TABLET PO (05:36)
[2018-01-15] MEDS: FUROSEMIDE 40 MG TAB PO ×2 (05:37→18:08)
[2018-01-15 05:55] LABS: ADD MAN DIFF? NO
[2018-01-15 05:59] LABS: BASOPHIL # 0.1 10^3/ul (0.0-0.1); BASOPHILS % 0.7 % (0.0-2.0); EOSINOPHILS # 0.3 10^3/ul (0.0-0.5); EOSINOPHILS % 4.3 % (0.0-7.0); HEMATOCRIT 33.2 % (42.0-52.0); HEMOGLOBIN 10.3 g/dl (14.0-18.0); LYMPHOCYTES # 1.3 10^3/ul (0.8-2.9); LYMPHOCYTES % 18.8 % (15.0-51.0); MEAN CORPUSCULAR HEMOGLOBIN 29.3 pg (29.0-33.0); MEAN CORPUSCULAR VOLUME 94.6 fl (82.0-101.0); MEAN PLATELET VOLUME 10.6 fl (7.4-10.4); MONOCYTE # 0.9 10^3/ul (0.3-0.9); MONOCYTES % 12.4 % (0.0-11.0); NEUTROPHIL # 4.5 10^3/ul (1.6-7.5); NEUTROPHILS % 63.7 % (39.0-77.0); PLATELET COUNT 125 10^3/UL (140-415); RED BLOOD COUNT 3.51 10^6/ul (4.70-6.10); RED CELL DISTRIBUTION WIDTH 17.2 % (11.5-14.5)
[2018-01-15 06:32] LABS: ALANINE AMINOTRANSFERASE 83 IU/L (13-69); ALBUMIN 3.4 g/dl (3.3-4.9); ALBUMIN/GLOBULIN RATIO 0.75; ALKALINE PHOSPHATASE 125 IU/L (42-121); ANION GAP 13 (8-16); ASPARTATE AMINO TRANSFERASE 70 IU/L (15-46); BILIRUBIN,INDIRECT 0.2 mg/dl (0-1.1); BILIRUBIN,TOTAL 0.2 mg/dl (0.2-1.3); BLOOD UREA NITROGEN 33 mg/dl (7-20); CALCIUM 8.8 mg/dl (8.4-10.2); CARBON DIOXIDE 27 mmol/L (21-31); CHLORIDE 105 mmol/L (97-110); CREATININE 1.19 mg/dl (0.61-1.24); GLUCOSE 117 mg/dl (70-220); MAGNESIUM 1.7 mg/dl (1.7-2.5); PHOSPHORUS 3.9 mg/dl (2.5-4.9); POTASSIUM 4.3 mmol/L (3.5-5.1); SODIUM 141 mmol/L (135-144); TOTAL PROTEIN 7.9 g/dl (6.1-8.1)
[2018-01-15 07:40] LABS: ANISOCYTOSIS 1+ (0-0); BASOPHIL #M 0.1 10^3/ul (0.0-0.0); BASOPHILS % (M) 2 % (0-2); EOSINOPHILS % (M) 5 % (0-7); GIANT THROMBO% (M) 3 % (0-0); LYMPHOCYTES #M 1.3 10^3/ul (0.8-2.9); LYMPHOCYTES % (M) 19 % (15-51); MONOCYTE #M 0.7 10^3/ul (0.3-0.9); MONOCYTES % (M) 10 % (0-11); PLATELET ESTIMATE DECREASED; POLYCHROMASIA 1+ (0-0); SEGMENTED NEUTROPHILS (M) % 64 % (39-77); SMUDGE%M 3 % (0-0)
[2018-01-15] MEDS: NICOTINE (21 MG/24 HR) PATCH TRANSDERM (09:00)
[2018-01-15] MEDS: ATORVASTATIN 10 MG TAB PO (09:08)
[2018-01-15] MEDS: ASPIRIN (EC) 81 MG TAB PO (09:08)
[2018-01-15] MEDS: LOSARTAN 25 MG TAB PO (09:09)
[2018-01-15] MEDS: IBUPROFEN 600 MG TAB PO (20:48)
[2018-01-16] MEDS: PANTOPRAZOLE (EC) 40 MG TAB PO ×2 (05:40→17:56)
[2018-01-16] MEDS: LEVOFLOXACIN 750 MG TABLET PO (05:40)
[2018-01-16] MEDS: FUROSEMIDE 40 MG TAB PO ×2 (05:40→17:56)
[2018-01-16 06:44] LABS: ANION GAP 13 (8-16); BLOOD UREA NITROGEN 40 mg/dl (7-20); CALCIUM 9.1 mg/dl (8.4-10.2); CARBON DIOXIDE 26 mmol/L (21-31); CHLORIDE 109 mmol/L (97-110); CREATININE 1.25 mg/dl (0.61-1.24); GLUCOSE 110 mg/dl (70-220); MAGNESIUM 1.6 mg/dl (1.7-2.5); PHOSPHORUS 3.9 mg/dl (2.5-4.9); POTASSIUM 4.5 mmol/L (3.5-5.1); SODIUM 143 mmol/L (135-144)
[2018-01-16] MEDS: ONDANSETRON 4 MG INJ IV (07:34)
[2018-01-16] MEDS: NICOTINE (21 MG/24 HR) PATCH TRANSDERM (09:00)
[2018-01-16] MEDS: ASPIRIN (EC) 81 MG TAB PO (09:31)
[2018-01-16] MEDS: ATORVASTATIN 10 MG TAB PO (09:32)
[2018-01-16] MEDS: LOSARTAN 25 MG TAB PO (09:32)
[2018-01-16] MEDS ORDERED: HEPARIN 5,000 UNIT/0.5 ML VIAL SC (11:00)
[2018-01-16] MEDS: MAGNESIUM SULFATE 1 GM/D5W 100 ML IVPB (14:32)
[2018-01-16] MEDS: IBUPROFEN 600 MG TAB PO (17:55)
[2018-01-17] MEDS: FUROSEMIDE 40 MG TAB PO (05:38)
[2018-01-17] MEDS: LEVOFLOXACIN 750 MG TABLET PO (05:38)
[2018-01-17] MEDS: PANTOPRAZOLE (EC) 40 MG TAB PO ×2 (05:38→17:48)
[2018-01-17 06:22] LABS: ADD MAN DIFF? NO
[2018-01-17 06:24] LABS: BASOPHIL # 0.1 10^3/ul (0.0-0.1); BASOPHILS % 0.6 % (0.0-2.0); EOSINOPHILS # 0.3 10^3/ul (0.0-0.5); EOSINOPHILS % 3.7 % (0.0-7.0); HEMATOCRIT 33.4 % (42.0-52.0); HEMOGLOBIN 10.6 g/dl (14.0-18.0); LYMPHOCYTES # 1.5 10^3/ul (0.8-2.9); MEAN CORPUSCULAR HEMOGLOBIN 30.2 pg (29.0-33.0); MEAN CORPUSCULAR HGB CONC 31.7 g/dl (32.0-37.0); MEAN CORPUSCULAR VOLUME 95.2 fl (82.0-101.0); MEAN PLATELET VOLUME 11.4 fl (7.4-10.4); MONOCYTE # 1.1 10^3/ul (0.3-0.9); NEUTROPHIL # 4.9 10^3/ul (1.6-7.5); NEUTROPHILS % 62.3 % (39.0-77.0); PLATELET COUNT 122 10^3/UL (140-415); POSITIVE DIFF @See below; RED BLOOD COUNT 3.51 10^6/ul (4.70-6.10); RED CELL DISTRIBUTION WIDTH 17.3 % (11.5-14.5)
[2018-01-17 06:24] LABS: WHITE BLOOD COUNT 7.9 10^3/ul (4.8-10.8)
[2018-01-17 06:55] LABS: ANION GAP 17 (8-16); BLOOD UREA NITROGEN 40 mg/dl (7-20); CALCIUM 8.5 mg/dl (8.4-10.2); CARBON DIOXIDE 23 mmol/L (21-31); CHLORIDE 108 mmol/L (97-110); CREATININE 1.32 mg/dl (0.61-1.24); GLUCOSE 109 mg/dl (70-220); POTASSIUM 4.5 mmol/L (3.5-5.1); SODIUM 143 mmol/L (135-144)
[2018-01-17] MEDS: ATORVASTATIN 10 MG TAB PO (08:37)
[2018-01-17] MEDS: ASPIRIN (EC) 81 MG TAB PO (08:37)
[2018-01-17] MEDS: LOSARTAN 25 MG TAB PO (08:37)
[2018-01-17] MEDS: NICOTINE (21 MG/24 HR) PATCH TRANSDERM (08:38)
[2018-01-17] MEDS: NACL 0.9% 3 ML SYG IV (20:14)
[2018-01-18 06:10] LABS: ADD MAN DIFF? NO
[2018-01-18] MEDS: PANTOPRAZOLE (EC) 40 MG TAB PO ×2 (06:11→17:52)
[2018-01-18 06:12] LABS: BASOPHIL # 0.1 10^3/ul (0.0-0.1); BASOPHILS % 0.6 % (0.0-2.0); EOSINOPHILS # 0.2 10^3/ul (0.0-0.5); EOSINOPHILS % 2.5 % (0.0-7.0); HEMATOCRIT 32.8 % (42.0-52.0); HEMOGLOBIN 10.3 g/dl (14.0-18.0); LYMPHOCYTES # 1.4 10^3/ul (0.8-2.9); LYMPHOCYTES % 17.2 % (15.0-51.0); MEAN CORPUSCULAR HEMOGLOBIN 29.9 pg (29.0-33.0); MEAN CORPUSCULAR HGB CONC 31.4 g/dl (32.0-37.0); MEAN CORPUSCULAR VOLUME 95.3 fl (82.0-101.0); MEAN PLATELET VOLUME 11.1 fl (7.4-10.4); MONOCYTES % 11.7 % (0.0-11.0); NEUTROPHIL # 5.6 10^3/ul (1.6-7.5); NEUTROPHILS % 67.6 % (39.0-77.0); PLATELET COUNT 109 10^3/UL (140-415); RED BLOOD COUNT 3.44 10^6/ul (4.70-6.10); RED CELL DISTRIBUTION WIDTH 17.8 % (11.5-14.5)
[2018-01-18 06:12] LABS: WHITE BLOOD COUNT 8.2 10^3/ul (4.8-10.8)
[2018-01-18 06:41] LABS: ANION GAP 14 (8-16); BLOOD UREA NITROGEN 36 mg/dl (7-20); CALCIUM 8.6 mg/dl (8.4-10.2); CARBON DIOXIDE 23 mmol/L (21-31); CHLORIDE 110 mmol/L (97-110); CREATININE 1.04 mg/dl (0.61-1.24); GLUCOSE 102 mg/dl (70-220); POTASSIUM 4.3 mmol/L (3.5-5.1); SODIUM 143 mmol/L (135-144)
[2018-01-18] MEDS: ATORVASTATIN 10 MG TAB PO (08:59)
[2018-01-18] MEDS: FUROSEMIDE 40 MG TAB PO (09:00)
[2018-01-18] MEDS: ASPIRIN (EC) 81 MG TAB PO (09:00)
[2018-01-18] MEDS: NICOTINE (21 MG/24 HR) PATCH TRANSDERM (09:00)
[2018-01-18] MEDS: LOSARTAN 25 MG TAB PO (09:01)
[2018-01-18] MEDS: IBUPROFEN 600 MG TAB PO (22:18)
[2018-01-19] MEDS: PANTOPRAZOLE (EC) 40 MG TAB PO (05:38)
[2018-01-19 06:28] LABS: ADD MAN DIFF? NO
[2018-01-19 06:34] LABS: ABNORMAL IP MESSAGE 1; BASOPHILS % 0.4 % (0.0-2.0); EOSINOPHILS # 0.2 10^3/ul (0.0-0.5); EOSINOPHILS % 3.2 % (0.0-7.0); HEMATOCRIT 32.8 % (42.0-52.0); HEMOGLOBIN 10.4 g/dl (14.0-18.0); LYMPHOCYTES # 1.2 10^3/ul (0.8-2.9); LYMPHOCYTES % 17.4 % (15.0-51.0); MEAN CORPUSCULAR HEMOGLOBIN 30.3 pg (29.0-33.0); MEAN CORPUSCULAR HGB CONC 31.7 g/dl (32.0-37.0); MEAN CORPUSCULAR VOLUME 95.6 fl (82.0-101.0); MEAN PLATELET VOLUME 11.2 fl (7.4-10.4); MONOCYTE # 0.9 10^3/ul (0.3-0.9); MONOCYTES % 13.5 % (0.0-11.0); NEUTROPHIL # 4.5 10^3/ul (1.6-7.5); NEUTROPHILS % 65.1 % (39.0-77.0); PLATELET COUNT 98 10^3/UL (140-415); POSITIVE DIFF @See below; RED BLOOD COUNT 3.43 10^6/ul (4.70-6.10); RED CELL DISTRIBUTION WIDTH 17.7 % (11.5-14.5)
[2018-01-19 06:54] LABS: ANION GAP 15 (8-16); BLOOD UREA NITROGEN 34 mg/dl (7-20); CALCIUM 8.6 mg/dl (8.4-10.2); CARBON DIOXIDE 20 mmol/L (21-31); CHLORIDE 112 mmol/L (97-110); CREATININE 1.03 mg/dl (0.61-1.24); GLUCOSE 109 mg/dl (70-220); POTASSIUM 4.4 mmol/L (3.5-5.1); SODIUM 143 mmol/L (135-144)
[2018-01-19] MEDS: ATORVASTATIN 10 MG TAB PO (08:35)
[2018-01-19] MEDS: LOSARTAN 25 MG TAB PO (08:35)
[2018-01-19] MEDS: ASPIRIN (EC) 81 MG TAB PO (08:35)
[2018-01-19] MEDS: FUROSEMIDE 40 MG TAB PO (08:36)
[2018-01-19] MEDS: NICOTINE (21 MG/24 HR) PATCH TRANSDERM (08:37)
== END 2018-01-19 12:25 | disposition home or self-care (01) | DRG 292 ==
LOC: MS2 01-13 07:50 → MS4 18:07
DX: I50.23 Acute on chronic systolic (congestive) heart failure (principal); I42.9 Cardiomyopathy, unspecified; K86.1 Other chronic pancreatitis; R78.81 Bacteremia; R74.8 Abnormal levels of other serum enzymes; K21.9 Gastro-esophageal reflux disease without esophagitis; R68.84 Jaw pain; R10.84 Generalized abdominal pain; Z79.82 Long term (current) use of aspirin
CPT/HCPCS: 70486; 71046; 74018; 80048; 80053; 80076; 80307; 81001; 83735; 84100; 85025; 87081

== ENCOUNTER 2018-03-05 12:01 | Inpatient (IN) | payer OTHER ==
[~2018-03-05 12:01] MED LIST: ETOMIDATE 20 MG INJ
[2018-03-05] MEDS ORDERED: DEXTROSE 50% 50 ML SYRINGE (12:24)
[2018-03-05 12:43] LABS: ADD MAN DIFF? NO
[2018-03-05] MEDS: ALBUTEROL 0.5% (NEB) 2.5 MG/0.5 ML AMP INH (12:44)
[2018-03-05 12:51] LABS: WHITE BLOOD COUNT 9.9 10^3/ul (4.8-10.8)
[2018-03-05 12:51] LABS: BASOPHILS % 0.3 % (0.0-2.0); EOSINOPHILS % 0.1 % (0.0-7.0); HEMATOCRIT 38.9 % (42.0-52.0); HEMOGLOBIN 11.9 g/dl (14.0-18.0); LYMPHOCYTES % 10.6 % (15.0-51.0); MEAN CORPUSCULAR HGB CONC 30.6 g/dl (32.0-37.0); MEAN CORPUSCULAR VOLUME 94.9 fl (82.0-101.0); MEAN PLATELET VOLUME 11.3 fl (7.4-10.4); MONOCYTE # 0.9 10^3/ul (0.3-0.9); MONOCYTES % 8.7 % (0.0-11.0); NEUTROPHIL # 7.9 10^3/ul (1.6-7.5); NEUTROPHILS % 79.7 % (39.0-77.0); PLATELET COUNT 198 10^3/UL (140-415); RED CELL DISTRIBUTION WIDTH 16.2 % (11.5-14.5)
[2018-03-05] MEDS: NITROGLYCERIN (SL) 0.4 MG TAB SL (12:57)
[2018-03-05] MEDS: METHYLPREDNISOLONE 125 MG INJ IV (12:57)
[2018-03-05] MEDS: ASPIRIN 81 MG TAB PO (12:58)
[2018-03-05] MEDS: DEXTROSE 50% 50 ML SYRINGE IV (12:58)
[2018-03-05 13:00] LABS: PARTIAL THROMBOPLASTIN TIME 39.5 Sec (25.0-35.0)
[2018-03-05 13:05] LABS: ALANINE AMINOTRANSFERASE 34 IU/L (13-69); ALBUMIN 4.4 g/dl (3.3-4.9); ALBUMIN/GLOBULIN RATIO 0.86; ALKALINE PHOSPHATASE 144 IU/L (42-121); ANION GAP 25 (8-16); ASPARTATE AMINO TRANSFERASE 64 IU/L (15-46); BILIRUBIN,INDIRECT 1.4 mg/dl (0-1.1); BILIRUBIN,TOTAL 1.8 mg/dl (0.2-1.3); BLOOD UREA NITROGEN 16 mg/dl (7-20); CALCIUM 9.5 mg/dl (8.4-10.2); CARBON DIOXIDE 10 mmol/L (21-31); CHLORIDE 114 mmol/L (97-110); CREATININE 1.55 mg/dl (0.61-1.24); LIPASE 49 U/L (23-300); SODIUM 144 mmol/L (135-144); TOTAL PROTEIN 9.5 g/dl (6.1-8.1)
[2018-03-05 13:08] LABS: GLUCOSE 37 mg/dl (70-220); INR 1.72; PROTIME 20.5 Sec (11.9-14.9); PT RATIO 1.6
[2018-03-05 13:16] LABS: B-TYPE NATRIURETIC PEPTIDE 29800 PG/ML (0-125); TROPONIN-I 0.072 ng/ml (0.000-0.120)
[2018-03-05] MEDS: FUROSEMIDE 40 MG INJ IV ×2 (13:44→17:59)
[2018-03-05 13:50] LABS: AADO2 Arterial 214.2 mmHg (7.0-24.0); Allen Test ACCEPTAB; Arterial Base Excess -18.5 mmol/L (-3.0-3); Arterial Blood Gas Oxygen Sat 42.9 mmHG (95.0-98.0); Arterial COHb 0.3 % (0.0-3.0); Arterial Fraction of Oxyhgb 42.6 % (93.0-99.0); Arterial HCO3 9.7 mmol/L (22.0-26.0); Arterial MetHb 0.3 % (0.0-1.5); Arterial Total Hemglobin 13.3 g/dl (12.0-18.0); MODE MASK - SIMPLE; Site Right Radial
[2018-03-05] MEDS: ENALAPRILAT 1.25 MG INJ IV (13:53)
[2018-03-05] MEDS ORDERED: LORAZEPAM 2 MG INJ (15:29)
[2018-03-05] MEDS: IODIXANOL LOCM 100 ML BTL (15:33)
[2018-03-05] MEDS: LORAZEPAM 2 MG INJ IV (15:33)
[2018-03-05] MEDS: SOD CHLORIDE 0.9% 100 ML (15:34)
[2018-03-05] MEDS: MIDAZOLAM (DRIP) 50 mg/50 mL 50 ML IV ×2 (15:59→17:51)
[2018-03-05] MEDS: hydrALAzine 20 MG INJ IV (16:21)
[2018-03-05] MEDS: FENTAnyl (DRIP) 1000 mcg/100mL 100 ML IV (17:43)
[2018-03-05] MEDS ORDERED: ONDANSETRON 4 MG INJ IV (18:00)
[2018-03-05] MEDS ORDERED: NACL 0.9% 3 ML SYG IV (18:00)
[2018-03-05] MEDS ORDERED: morphine 2 MG INJ IV (18:00)
[2018-03-05] MEDS ORDERED: LABETALOL HCL 20MG INJ IV (19:30)
[2018-03-05] MEDS: PANTOPRAZOLE 40 MG INJ IV (20:45)
[2018-03-05 20:51] LABS: HEMOGLOBIN 11.8 g/dl (14.0-18.0)
[2018-03-05] MEDS: HEPARIN 5,000 UNIT/0.5 ML VIAL SC (20:51)
[2018-03-06 05:26] LABS: ADD MAN DIFF? NO; BASOPHILS % 0.2 % (0.0-2.0); HEMATOCRIT 37.8 % (42.0-52.0); LYMPHOCYTES # 1.5 10^3/ul (0.8-2.9); LYMPHOCYTES % 8.9 % (15.0-51.0); MEAN CORPUSCULAR HEMOGLOBIN 29.7 pg (29.0-33.0); MEAN CORPUSCULAR HGB CONC 29.1 g/dl (32.0-37.0); MEAN CORPUSCULAR VOLUME 102.2 fl (82.0-101.0); MEAN PLATELET VOLUME 11.2 fl (7.4-10.4); MONOCYTE # 1.4 10^3/ul (0.3-0.9); MONOCYTES % 8.2 % (0.0-11.0); NEUTROPHIL # 13.8 10^3/ul (1.6-7.5); NEUTROPHILS % 81.2 % (39.0-77.0); PLATELET COUNT 187 10^3/UL (140-415); RED CELL DISTRIBUTION WIDTH 16.3 % (11.5-14.5)
[2018-03-06 05:55] LABS: ANION GAP 34 (8-16); BLOOD UREA NITROGEN 25 mg/dl (7-20); CALCIUM 8.9 mg/dl (8.4-10.2); CHLORIDE 109 mmol/L (97-110); CREATININE 3.38 mg/dl (0.61-1.24); MAGNESIUM 1.6 mg/dl (1.7-2.5); PHOSPHORUS 10.6 mg/dl (2.5-4.9); SODIUM 144 mmol/L (135-144)
[2018-03-06] MEDS ORDERED: PANTOPRAZOLE 40 MG INJ IV (06:00)
[2018-03-06] MEDS: FUROSEMIDE 40 MG INJ IV (06:09)
[2018-03-06 06:27] LABS: POTASSIUM 6.8 mmol/L (3.5-5.1)
[2018-03-06 06:28] LABS: GLUCOSE 43 mg/dl (70-220)
[2018-03-06 06:29] LABS: CARBON DIOXIDE 8 mmol/L (21-31)
[2018-03-06] MEDS: DEXTROSE 10% 1,000 ML IV (06:57)
[2018-03-06] MEDS: PANTOPRAZOLE 40 MG INJ IV ×2 (08:45→20:34)
[2018-03-06] MEDS: NA POLYST SULFON 15 GM/60 ML BTL NGT (08:46)
[2018-03-06] MEDS: HEPARIN 5,000 UNIT/0.5 ML VIAL SC (08:47)
[2018-03-06] MEDS ORDERED: HEPARIN 1000 UNITS/ML 10 ML INJ IV ×2 (09:00)
[2018-03-06 09:36] LABS: ADD MAN DIFF? NO
[2018-03-06 09:45] LABS: BASOPHILS % 0.1 % (0.0-2.0); HEMATOCRIT 34.9 % (42.0-52.0); HEMOGLOBIN 10.6 g/dl (14.0-18.0); LYMPHOCYTES # 1.3 10^3/ul (0.8-2.9); MEAN CORPUSCULAR HEMOGLOBIN 29.6 pg (29.0-33.0); MEAN CORPUSCULAR HGB CONC 30.4 g/dl (32.0-37.0); MEAN CORPUSCULAR VOLUME 97.5 fl (82.0-101.0); MEAN PLATELET VOLUME 11.1 fl (7.4-10.4); MONOCYTE # 0.8 10^3/ul (0.3-0.9); MONOCYTES % 4.8 % (0.0-11.0); NEUTROPHIL # 13.9 10^3/ul (1.6-7.5); NEUTROPHILS % 86.2 % (39.0-77.0); POSITIVE DIFF @See below; RED BLOOD COUNT 3.58 10^6/ul (4.70-6.10)
[2018-03-06 09:45] LABS: WHITE BLOOD COUNT 16.2 10^3/ul (4.8-10.8)
[2018-03-06 09:48] LABS: PLATELET COUNT 137 10^3/UL (140-415)
[2018-03-06] MEDS: SOD CHLORIDE 0.9% 1,000 ML IV ×3 (09:49→15:02)
[2018-03-06 10:06] LABS: LACTIC ACID 11.8 mmol/L (0.5-2.0)
[2018-03-06 10:06] LABS: INR 2.51; PROTIME 27.8 Sec (11.9-14.9); PT RATIO 2.2
[2018-03-06 10:07] LABS: PARTIAL THROMBOPLASTIN TIME 44.4 Sec (25.0-35.0)
[2018-03-06 10:11] LABS: AADO2 Arterial 261.1 mmHg (7.0-24.0); Allen Test ACCEPTAB; Arterial Base Excess -10.4 mmol/L (-3.0-3); Arterial Blood Gas Oxygen Sat 99.7 mmHG (95.0-98.0); Arterial COHb 0.3 % (0.0-3.0); Arterial Fraction of Oxyhgb 98.9 % (93.0-99.0); Arterial HCO3 13.4 mmol/L (22.0-26.0); Arterial MetHb 0.5 % (0.0-1.5); Arterial Total Hemglobin 11.4 g/dl (12.0-18.0); Arterial pCO2 24.2 mmhg (35-45); MODE VENT - AC; Site Right Radial
[2018-03-06] MEDS: NA BICARBONATE 8.4% 50 ML SYG IV (10:29)
[2018-03-06] MEDS: MAGNESIUM SULFATE 1 GM/D5W 100 ML IVPB (10:46)
[2018-03-06] MEDS: ACCU-CHEK XX ×4 (10:46→20:33)
[2018-03-06] MEDS: MIDAZOLAM (DRIP) 50 mg/50 mL 50 ML IV ×2 (11:33→20:16)
[2018-03-06] MEDS: ALBUTEROL 0.083% (NEB) 2.5 MG/3 ML AMP HHN (12:33)
[2018-03-06] MEDS ORDERED: PHENYLephrine 20MG IN 250 ML 250 ML (14:59)
[2018-03-06 15:07] LABS: ANION GAP 14 (8-16); BLOOD UREA NITROGEN 45 mg/dl (7-20); CALCIUM 7.3 mg/dl (8.4-10.2); CARBON DIOXIDE 20 mmol/L (21-31); CHLORIDE 111 mmol/L (97-110); CREATININE 3.38 mg/dl (0.61-1.24); GLUCOSE 172 mg/dl (70-220); POTASSIUM 4.6 mmol/L (3.5-5.1); SODIUM 140 mmol/L (135-144)
[2018-03-06] MEDS: PHENYLephrine 20MG IN 250 ML 250 ML IV ×2 (15:54→21:58)
[2018-03-06] MEDS: LIDOCAINE 1% (MPF) 5 ML VIAL SC (16:26)
[2018-03-06 20:33] LABS: ADD MAN DIFF? NO
[2018-03-06 20:34] LABS: WHITE BLOOD COUNT 15.1 10^3/ul (4.8-10.8)
[2018-03-06 20:34] LABS: BASOPHILS % 0.1 % (0.0-2.0); HEMOGLOBIN 10.4 g/dl (14.0-18.0); LYMPHOCYTES # 0.6 10^3/ul (0.8-2.9); LYMPHOCYTES % 4.2 % (15.0-51.0); MEAN CORPUSCULAR HEMOGLOBIN 30.6 pg (29.0-33.0); MEAN CORPUSCULAR HGB CONC 32.5 g/dl (32.0-37.0); MEAN CORPUSCULAR VOLUME 94.1 fl (82.0-101.0); MEAN PLATELET VOLUME 10.7 fl (7.4-10.4); MONOCYTE # 0.8 10^3/ul (0.3-0.9); MONOCYTES % 5.4 % (0.0-11.0); NEUTROPHIL # 13.5 10^3/ul (1.6-7.5); NEUTROPHILS % 89.8 % (39.0-77.0); PLATELET COUNT 145 10^3/UL (140-415); RED CELL DISTRIBUTION WIDTH 16.1 % (11.5-14.5)
[2018-03-06 20:56] LABS: PARTIAL THROMBOPLASTIN TIME 44.6 Sec (25.0-35.0)
[2018-03-06] MEDS: HEPARIN 25000 UNITS/250 ML 250 ML IV (21:56)
[2018-03-07] MEDS: PHENYLephrine 40 MG in DEXTROSE 5% 496 ML IV ×5 (00:29→18:54)
[2018-03-07] MEDS: ACCU-CHEK XX ×6 (00:29→20:49)
[2018-03-07] MEDS: SOD CHLORIDE 0.9% 1,000 ML IV ×2 (03:48→18:34)
[2018-03-07] MEDS ORDERED: PHENYLephrine 20MG IN 250 ML 250 ML ×2 (04:50→13:13)
[2018-03-07] MEDS ORDERED: PHENYLephrine 20MG IN 250 ML 250 ML IV (05:00)
[2018-03-07 05:03] LABS: ADD MAN DIFF? NO; BASOPHILS % 0.1 % (0.0-2.0); HEMATOCRIT 35.6 % (42.0-52.0); HEMOGLOBIN 11.5 g/dl (14.0-18.0); LYMPHOCYTES # 0.6 10^3/ul (0.8-2.9); LYMPHOCYTES % 3.8 % (15.0-51.0); MEAN CORPUSCULAR HEMOGLOBIN 30.4 pg (29.0-33.0); MEAN CORPUSCULAR HGB CONC 32.3 g/dl (32.0-37.0); MEAN CORPUSCULAR VOLUME 94.2 fl (82.0-101.0); MONOCYTE # 0.9 10^3/ul (0.3-0.9); MONOCYTES % 5.6 % (0.0-11.0); NEUTROPHIL # 14.6 10^3/ul (1.6-7.5); NEUTROPHILS % 89.8 % (39.0-77.0); NUCLEATED RED BLOOD CELLS% 0.2 /100WBC (0.0-0.0); PLATELET COUNT 188 10^3/UL (140-415); RED BLOOD COUNT 3.78 10^6/ul (4.70-6.10); RED CELL DISTRIBUTION WIDTH 16.5 % (11.5-14.5)
[2018-03-07 05:03] LABS: WHITE BLOOD COUNT 16.2 10^3/ul (4.8-10.8)
[2018-03-07 05:27] LABS: ANION GAP 14 (8-16); BLOOD UREA NITROGEN 61 mg/dl (7-20); CALCIUM 7.1 mg/dl (8.4-10.2); CARBON DIOXIDE 21 mmol/L (21-31); CHLORIDE 113 mmol/L (97-110); GLUCOSE 139 mg/dl (70-220); MAGNESIUM 1.9 mg/dl (1.7-2.5); PHOSPHORUS 5.7 mg/dl (2.5-4.9); POTASSIUM 5.2 mmol/L (3.5-5.1); SODIUM 143 mmol/L (135-144)
[2018-03-07 05:33] LABS: INR 2.27; PROTIME 25.6 Sec (11.9-14.9)
[2018-03-07] MEDS: PHENYLephrine 20MG IN 250 ML 250 ML IV (05:39)
[2018-03-07 08:23] LABS: AADO2 Arterial 118.9 mmHg (7.0-24.0); Allen Test ACCEPTAB; Arterial Base Excess -8.5 mmol/L (-3.0-3); Arterial Blood Gas Oxygen Sat 98.1 mmHG (95.0-98.0); Arterial COHb 0.5 % (0.0-3.0); Arterial Fraction of Oxyhgb 97.4 % (93.0-99.0); Arterial HCO3 16.4 mmol/L (22.0-26.0); Arterial MetHb 0.2 % (0.0-1.5); Arterial Total Hemglobin 12.7 g/dl (12.0-18.0); Arterial pCO2 32.4 mmhg (35-45); MODE VENT - AC; Site Left Radial
[2018-03-07] MEDS: PANTOPRAZOLE 40 MG INJ IV ×2 (08:47→20:42)
[2018-03-07 11:14] LABS: ADD UMIC YES; UR ASCORBIC ACID NEGATIVE (NEGATIVE); UR BACTERIA FEW /HPF (NONE SEEN); UR BILIRUBIN (Dip) NEGATIVE (NEGATIVE); UR BLOOD (Dip) 3+ mg/dL (NEGATIVE); UR CLARITY CLOUDY (CLEAR); UR COLOR AMBER (YELLOW); UR GLUCOSE (Dip) NEGATIVE (NEGATIVE); UR KETONES (Dip) NEGATIVE (NEGATIVE); UR LEUKOCYTE ESTERASE (Dip) 2+ Leu/ul (NEGATIVE); UR MUCUS FEW /HPF (NONE SEEN); UR NITRITE (Dip) NEGATIVE (NEGATIVE); UR RBC 46 /HPF (0-5); UR SPECIFIC GRAVITY (Dip) 1.021 (1.003-1.030); UR TOTAL PROTEIN (Dip) 2+ mg/dl (NEGATIVE); UR UROBILINOGEN (Dip) 1+ mg/dL (NEGATIVE); UR WBC 59 /HPF (0-5)
[2018-03-07] MEDS ORDERED: VANCOMYCIN IV PER PHARMACY XX (12:00)
[2018-03-07 13:01] LABS: CREATININE,URINE RANDOM 118.22 mg/dl (20-370)
[2018-03-07 13:01] LABS: SODIUM,URINE RANDOM 41 mmol/L (30-90)
[2018-03-07 13:05] LABS: INR 2.23; PROTIME 25.3 Sec (11.9-14.9)
[2018-03-07 13:48] LABS: PARTIAL THROMBOPLASTIN TIME 173.2 Sec (25.0-35.0)
[2018-03-07] MEDS: PIPER-TAZO 2.25 GM (PMX) 50 ML IVPB ×2 (14:00→22:22)
[2018-03-07] MEDS: VANCOMYCIN 1.5 GM in SOD CHLORIDE 0.9% 250 ML IVPB (14:42)
[2018-03-07] MEDS: HEPARIN 25000 UNITS/250 ML 250 ML IV (18:38)
[2018-03-07 18:50] LABS: INR 1.98; PT RATIO 1.8
[2018-03-07 19:16] LABS: PARTIAL THROMBOPLASTIN TIME 133.6 Sec (25.0-35.0)
[2018-03-08] MEDS: ACCU-CHEK XX ×6 (01:43→22:09)
[2018-03-08 01:52] LABS: INR 1.65; PROTIME 19.9 Sec (11.9-14.9); PT RATIO 1.6
[2018-03-08 05:19] LABS: ADD MAN DIFF? NO
[2018-03-08 05:20] LABS: BASOPHILS % 0.1 % (0.0-2.0); EOSINOPHILS # 0.1 10^3/ul (0.0-0.5); EOSINOPHILS % 1.1 % (0.0-7.0); HEMATOCRIT 32.8 % (42.0-52.0); HEMOGLOBIN 10.5 g/dl (14.0-18.0); LYMPHOCYTES # 0.8 10^3/ul (0.8-2.9); LYMPHOCYTES % 8.9 % (15.0-51.0); MEAN CORPUSCULAR HEMOGLOBIN 29.7 pg (29.0-33.0); MEAN CORPUSCULAR VOLUME 92.9 fl (82.0-101.0); MEAN PLATELET VOLUME 11.2 fl (7.4-10.4); MONOCYTE # 0.6 10^3/ul (0.3-0.9); MONOCYTES % 6.5 % (0.0-11.0); NEUTROPHIL # 7.8 10^3/ul (1.6-7.5); NEUTROPHILS % 83.1 % (39.0-77.0); PLATELET COUNT 113 10^3/UL (140-415); POSITIVE DIFF @See below; RED BLOOD COUNT 3.53 10^6/ul (4.70-6.10); RED CELL DISTRIBUTION WIDTH 16.5 % (11.5-14.5)
[2018-03-08 05:20] LABS: WHITE BLOOD COUNT 9.4 10^3/ul (4.8-10.8)
[2018-03-08] MEDS: SOD CHLORIDE 0.9% 1,000 ML IV ×2 (05:30→06:21)
[2018-03-08 05:44] LABS: PROTIME 20.3 Sec (11.9-14.9); PT RATIO 1.6
[2018-03-08 05:52] LABS: PARTIAL THROMBOPLASTIN TIME 74.5 Sec (25.0-35.0)
[2018-03-08 06:03] LABS: ALANINE AMINOTRANSFERASE 949 IU/L (13-69); ALBUMIN 2.6 g/dl (3.3-4.9); ALBUMIN/GLOBULIN RATIO 0.61; ALKALINE PHOSPHATASE 106 IU/L (42-121); ANION GAP 14 (8-16); BILIRUBIN,INDIRECT 0.6 mg/dl (0-1.1); BILIRUBIN,TOTAL 0.9 mg/dl (0.2-1.3); BLOOD UREA NITROGEN 61 mg/dl (7-20); CALCIUM 7.2 mg/dl (8.4-10.2); CARBON DIOXIDE 19 mmol/L (21-31); CHLORIDE 112 mmol/L (97-110); CREATININE 2.76 mg/dl (0.61-1.24); GLUCOSE 115 mg/dl (70-220); POTASSIUM 4.2 mmol/L (3.5-5.1); SODIUM 141 mmol/L (135-144); TOTAL PROTEIN 6.8 g/dl (6.1-8.1)
[2018-03-08 06:04] LABS: PHOSPHORUS 2.8 mg/dl (2.5-4.9)
[2018-03-08 06:04] LABS: MAGNESIUM 1.6 mg/dl (1.7-2.5)
[2018-03-08] MEDS: PIPER-TAZO 2.25 GM (PMX) 50 ML IVPB ×3 (06:22→22:04)
[2018-03-08 06:35] LABS: ASPARTATE AMINO TRANSFERASE 2528 IU/L (15-46)
[2018-03-08 08:34] LABS: INR 1.56; PT RATIO 1.5
[2018-03-08 08:36] LABS: PARTIAL THROMBOPLASTIN TIME 68.1 Sec (25.0-35.0)
[2018-03-08] MEDS: MAGNESIUM SULFATE 2 GM/50 ML 50 ML IVPB (10:52)
[2018-03-08] MEDS: PANTOPRAZOLE 40 MG INJ IV ×2 (10:52→22:04)
[2018-03-08 13:18] LABS: AADO2 Arterial 64.5 mmHg (7.0-24.0); Allen Test ACCEPTAB; Arterial Base Excess -4.7 mmol/L (-3.0-3); Arterial Blood Gas Oxygen Sat 99.4 mmHG (95.0-98.0); Arterial COHb 0.3 % (0.0-3.0); Arterial Fraction of Oxyhgb 98.9 % (93.0-99.0); Arterial HCO3 19.1 mmol/L (22.0-26.0); Arterial MetHb 0.2 % (0.0-1.5); Arterial Total Hemglobin 12.4 g/dl (12.0-18.0); Arterial pCO2 31.5 mmhg (35-45); Blood Gas PS 10; MODE VENT - CPAP; Site Right Radial
[2018-03-08 15:47] LABS: CREATININE, RANDOM URINE 134 mg/dL (20-370); MICROALBUMIN 49.2 mg/dL; MICROALBUMIN/CREATININE RATIO 367 (<30)
[2018-03-08 17:58] LABS: PARTIAL THROMBOPLASTIN TIME 75.2 Sec (25.0-35.0)
[2018-03-08] MEDS: MUPIROCIN 2% 22 GM OINT TOP (22:04)
[2018-03-08] MEDS: HEPARIN 25000 UNITS/250 ML 250 ML IV (23:04)
[2018-03-09 00:35] LABS: PARTIAL THROMBOPLASTIN TIME 75.1 Sec (25.0-35.0)
[2018-03-09] MEDS: ACCU-CHEK XX ×4 (01:11→18:00)
[2018-03-09 02:17] LABS: INR 1.37; PROTIME 17.1 Sec (11.9-14.9); PT RATIO 1.3
[2018-03-09 02:30] LABS: PARTIAL THROMBOPLASTIN TIME 96.6 Sec (25.0-35.0)
[2018-03-09 05:24] LABS: ADD MAN DIFF? NO
[2018-03-09 05:37] LABS: EOSINOPHILS # 0.2 10^3/ul (0.0-0.5); EOSINOPHILS % 2.8 % (0.0-7.0); HEMATOCRIT 35.3 % (42.0-52.0); HEMOGLOBIN 11.6 g/dl (14.0-18.0); LYMPHOCYTES # 0.7 10^3/ul (0.8-2.9); LYMPHOCYTES % 8.4 % (15.0-51.0); MEAN CORPUSCULAR HEMOGLOBIN 29.8 pg (29.0-33.0); MEAN CORPUSCULAR HGB CONC 32.9 g/dl (32.0-37.0); MEAN CORPUSCULAR VOLUME 90.7 fl (82.0-101.0); MEAN PLATELET VOLUME 10.8 fl (7.4-10.4); MONOCYTE # 0.6 10^3/ul (0.3-0.9); MONOCYTES % 7.1 % (0.0-11.0); NEUTROPHIL # 6.9 10^3/ul (1.6-7.5); NEUTROPHILS % 81.5 % (39.0-77.0); PLATELET COUNT 108 10^3/UL (140-415); POSITIVE DIFF @See below; RED BLOOD COUNT 3.89 10^6/ul (4.70-6.10); RED CELL DISTRIBUTION WIDTH 15.9 % (11.5-14.5)
[2018-03-09 05:37] LABS: WHITE BLOOD COUNT 8.4 10^3/ul (4.8-10.8)
[2018-03-09] MEDS: SOD CHLORIDE 0.9% 1,000 ML IV (05:57)
[2018-03-09] MEDS: PIPER-TAZO 2.25 GM (PMX) 50 ML IVPB ×3 (05:58→21:32)
[2018-03-09 06:15] LABS: ANION GAP 10 (8-16); BLOOD UREA NITROGEN 43 mg/dl (7-20); CALCIUM 8.1 mg/dl (8.4-10.2); CARBON DIOXIDE 24 mmol/L (21-31); CHLORIDE 112 mmol/L (97-110); CREATININE 1.89 mg/dl (0.61-1.24); GLUCOSE 98 mg/dl (70-220); MAGNESIUM 1.7 mg/dl (1.7-2.5); PHOSPHORUS 2.3 mg/dl (2.5-4.9); POTASSIUM 3.6 mmol/L (3.5-5.1); SODIUM 142 mmol/L (135-144)
[2018-03-09 07:42] LABS: INR 1.37; PROTIME 17.1 Sec (11.9-14.9); PT RATIO 1.3
[2018-03-09 07:52] LABS: PARTIAL THROMBOPLASTIN TIME 77.8 Sec (25.0-35.0)
[2018-03-09] MEDS: PANTOPRAZOLE 40 MG INJ IV (09:00)
[2018-03-09] MEDS ORDERED: VANCOMYCIN 1 GM 250 ML IVPB (10:00)
[2018-03-09 10:34] LABS: ALANINE AMINOTRANSFERASE 829 IU/L (13-69); ALKALINE PHOSPHATASE 113 IU/L (42-121); BILIRUBIN,TOTAL 1.7 mg/dl (0.2-1.3); TOTAL PROTEIN 7.3 g/dl (6.1-8.1)
[2018-03-09] MEDS: MUPIROCIN 2% 22 GM OINT TOP ×2 (10:52→21:32)
[2018-03-09 11:13] LABS: ASPARTATE AMINO TRANSFERASE 1645 IU/L (15-46)
[2018-03-09] MEDS: HEPARIN 25000 UNITS/250 ML 250 ML IV (21:38)
[2018-03-10 04:25] LABS: ADD MAN DIFF? NO; HAAIG REFLEX REFLEX FILED
[2018-03-10 04:29] LABS: WHITE BLOOD COUNT 7.9 10^3/ul (4.8-10.8)
[2018-03-10 04:29] LABS: BASOPHILS % 0.1 % (0.0-2.0); EOSINOPHILS # 0.3 10^3/ul (0.0-0.5); HEMATOCRIT 33.7 % (42.0-52.0); LYMPHOCYTES % 13.1 % (15.0-51.0); MEAN CORPUSCULAR HEMOGLOBIN 29.1 pg (29.0-33.0); MEAN CORPUSCULAR HGB CONC 32.6 g/dl (32.0-37.0); MEAN CORPUSCULAR VOLUME 89.2 fl (82.0-101.0); MEAN PLATELET VOLUME 10.6 fl (7.4-10.4); MONOCYTE # 0.9 10^3/ul (0.3-0.9); MONOCYTES % 10.7 % (0.0-11.0); NEUTROPHIL # 5.7 10^3/ul (1.6-7.5); NEUTROPHILS % 71.6 % (39.0-77.0); PLATELET COUNT 114 10^3/UL (140-415); RED BLOOD COUNT 3.78 10^6/ul (4.70-6.10); RED CELL DISTRIBUTION WIDTH 15.7 % (11.5-14.5)
[2018-03-10 04:52] LABS: ALANINE AMINOTRANSFERASE 541 IU/L (13-69); ALBUMIN 2.4 g/dl (3.3-4.9); ALKALINE PHOSPHATASE 103 IU/L (42-121); ANION GAP 12 (8-16); BILIRUBIN,INDIRECT 0.8 mg/dl (0-1.1); BILIRUBIN,TOTAL 0.9 mg/dl (0.2-1.3); BLOOD UREA NITROGEN 29 mg/dl (7-20); CALCIUM 8.1 mg/dl (8.4-10.2); CARBON DIOXIDE 25 mmol/L (21-31); CHLORIDE 109 mmol/L (97-110); CREATININE 1.62 mg/dl (0.61-1.24); GLUCOSE 90 mg/dl (70-220); INR 1.23; POTASSIUM 3.3 mmol/L (3.5-5.1); PROTIME 15.7 Sec (11.9-14.9); PT RATIO 1.2; SODIUM 143 mmol/L (135-144); TOTAL PROTEIN 6.4 g/dl (6.1-8.1)
[2018-03-10 04:57] LABS: PHOSPHORUS 2.6 mg/dl (2.5-4.9)
[2018-03-10 04:57] LABS: MAGNESIUM 1.3 mg/dl (1.7-2.5)
[2018-03-10 04:59] LABS: ASPARTATE AMINO TRANSFERASE 744 IU/L (15-46)
[2018-03-10 05:24] LABS: PARTIAL THROMBOPLASTIN TIME 94.1 Sec (25.0-35.0)
[2018-03-10] MEDS: PIPER-TAZO 2.25 GM (PMX) 50 ML IVPB ×3 (05:34→23:05)
[2018-03-10 06:53] LABS: HEPATITIS B SURFACE ANTIGEN NEGATIVE (NEGATIVE)
[2018-03-10 07:11] LABS: HEPATITIS B CORE ANTIBODY REACTIVE (NEGATIVE); HEPATITIS C VIRAL ANTIBODY REACTIVE (NEGATIVE)
[2018-03-10] MEDS: MAGNESIUM SULFATE 2 GM/50 ML 50 ML IVPB (08:49)
[2018-03-10] MEDS: POTASSIUM CHLORIDE (SR) 20 MEQ TAB PO (08:49)
[2018-03-10] MEDS: APIXABAN 5 MG TABLET PO ×2 (10:27→21:21)
[2018-03-10] MEDS: MUPIROCIN 2% 22 GM OINT TOP ×2 (10:27→21:21)
[2018-03-10] MEDS: FUROSEMIDE 20 MG INJ IV ×2 (10:30→18:04)
[2018-03-10] MEDS ORDERED: FUROSEMIDE 20 MG INJ IV (18:00)
[2018-03-11] MEDS: FUROSEMIDE 20 MG INJ IV (05:50)
[2018-03-11] MEDS: PIPER-TAZO 2.25 GM (PMX) 50 ML IVPB ×3 (05:50→23:03)
[2018-03-11 06:04] LABS: ADD MAN DIFF? NO
[2018-03-11 06:13] LABS: WHITE BLOOD COUNT 8.3 10^3/ul (4.8-10.8)
[2018-03-11 06:13] LABS: BASOPHILS % 0.2 % (0.0-2.0); EOSINOPHILS # 0.4 10^3/ul (0.0-0.5); EOSINOPHILS % 4.5 % (0.0-7.0); HEMATOCRIT 34.6 % (42.0-52.0); HEMOGLOBIN 11.4 g/dl (14.0-18.0); LYMPHOCYTES # 1.2 10^3/ul (0.8-2.9); LYMPHOCYTES % 14.2 % (15.0-51.0); MEAN CORPUSCULAR HEMOGLOBIN 29.5 pg (29.0-33.0); MEAN CORPUSCULAR HGB CONC 32.9 g/dl (32.0-37.0); MEAN CORPUSCULAR VOLUME 89.6 fl (82.0-101.0); MEAN PLATELET VOLUME 10.5 fl (7.4-10.4); MONOCYTE # 1.2 10^3/ul (0.3-0.9); MONOCYTES % 14.4 % (0.0-11.0); NEUTROPHIL # 5.5 10^3/ul (1.6-7.5); NEUTROPHILS % 66.2 % (39.0-77.0); PLATELET COUNT 105 10^3/UL (140-415); POSITIVE DIFF @See below; RED BLOOD COUNT 3.86 10^6/ul (4.70-6.10); RED CELL DISTRIBUTION WIDTH 15.3 % (11.5-14.5)
[2018-03-11 06:23] LABS: ANION GAP 12 (8-16); BLOOD UREA NITROGEN 22 mg/dl (7-20); CALCIUM 8.7 mg/dl (8.4-10.2); CARBON DIOXIDE 28 mmol/L (21-31); CHLORIDE 105 mmol/L (97-110); CREATININE 1.44 mg/dl (0.61-1.24); GLUCOSE 108 mg/dl (70-220); MAGNESIUM 1.4 mg/dl (1.7-2.5); PHOSPHORUS 3.2 mg/dl (2.5-4.9); POTASSIUM 3.9 mmol/L (3.5-5.1); SODIUM 141 mmol/L (135-144)
[2018-03-11 06:47] LABS: INR 1.37; PROTIME 17.1 Sec (11.9-14.9); PT RATIO 1.3
[2018-03-11 06:48] LABS: PARTIAL THROMBOPLASTIN TIME 43.3 Sec (25.0-35.0)
[2018-03-11] MEDS: MAGNESIUM SULFATE 2 GM/50 ML 50 ML IVPB (09:59)
[2018-03-11] MEDS: APIXABAN 5 MG TABLET PO ×2 (10:00→23:02)
[2018-03-11] MEDS: MUPIROCIN 2% 22 GM OINT TOP ×2 (10:00→23:03)
[2018-03-11] MEDS: FUROSEMIDE 20 MG TAB PO (18:00)
[2018-03-12] MEDS: FUROSEMIDE 20 MG TAB PO ×2 (06:23→18:04)
[2018-03-12] MEDS: PIPER-TAZO 2.25 GM (PMX) 50 ML IVPB ×3 (06:25→21:31)
[2018-03-12 07:18] LABS: ADD MAN DIFF? NO
[2018-03-12 07:19] LABS: EOSINOPHILS # 0.6 10^3/ul (0.0-0.5); EOSINOPHILS % 6.6 % (0.0-7.0); POSITIVE DIFF @See below
[2018-03-12 07:26] LABS: WHITE BLOOD COUNT 9.7 10^3/ul (4.8-10.8)
[2018-03-12 07:27] LABS: BASOPHIL # 0.1 10^3/ul (0.0-0.1); BASOPHILS % 0.5 % (0.0-2.0); HEMATOCRIT 38.6 % (42.0-52.0); HEMOGLOBIN 12.3 g/dl (14.0-18.0); LYMPHOCYTES # 1.5 10^3/ul (0.8-2.9); MEAN CORPUSCULAR HEMOGLOBIN 28.9 pg (29.0-33.0); MEAN CORPUSCULAR HGB CONC 31.9 g/dl (32.0-37.0); MEAN CORPUSCULAR VOLUME 90.6 fl (82.0-101.0); MEAN PLATELET VOLUME 10.4 fl (7.4-10.4); MONOCYTE # 1.4 10^3/ul (0.3-0.9); MONOCYTES % 14.3 % (0.0-11.0); NEUTROPHILS % 62.6 % (39.0-77.0); PLATELET COUNT 126 10^3/UL (140-415); RED BLOOD COUNT 4.26 10^6/ul (4.70-6.10); RED CELL DISTRIBUTION WIDTH 15.3 % (11.5-14.5)
[2018-03-12 07:44] LABS: ALANINE AMINOTRANSFERASE 341 IU/L (13-69); ALBUMIN 3.3 g/dl (3.3-4.9); ALKALINE PHOSPHATASE 192 IU/L (42-121); ANION GAP 14 (8-16); ASPARTATE AMINO TRANSFERASE 222 IU/L (15-46); BILIRUBIN,INDIRECT 0.4 mg/dl (0-1.1); BILIRUBIN,TOTAL 0.4 mg/dl (0.2-1.3); BLOOD UREA NITROGEN 29 mg/dl (7-20); CALCIUM 9.1 mg/dl (8.4-10.2); CARBON DIOXIDE 26 mmol/L (21-31); CHLORIDE 102 mmol/L (97-110); CREATININE 1.32 mg/dl (0.61-1.24); GLUCOSE 114 mg/dl (70-220); POTASSIUM 4.4 mmol/L (3.5-5.1); SODIUM 138 mmol/L (135-144)
[2018-03-12 08:04] LABS: PHOSPHORUS 3.9 mg/dl (2.5-4.9)
[2018-03-12 08:04] LABS: MAGNESIUM 1.5 mg/dl (1.7-2.5)
[2018-03-12 08:20] LABS: HIV 1&2 ANTIBODY NEGATIVE (NEGATIVE)
[2018-03-12] MEDS: APIXABAN 5 MG TABLET PO ×2 (08:54→21:00)
[2018-03-12] MEDS: MUPIROCIN 2% 22 GM OINT TOP ×2 (08:55→21:32)
[2018-03-13] MEDS: FUROSEMIDE 20 MG TAB PO ×2 (06:00→09:41)
[2018-03-13] MEDS: PIPER-TAZO 2.25 GM (PMX) 50 ML IVPB ×3 (06:09→21:38)
[2018-03-13] MEDS: APIXABAN 5 MG TABLET PO ×2 (09:41→21:39)
[2018-03-13] MEDS: MUPIROCIN 2% 22 GM OINT TOP ×2 (09:42→21:39)
[2018-03-13 12:11] LABS: ADD MAN DIFF? NO
[2018-03-13 12:15] LABS: WHITE BLOOD COUNT 8.3 10^3/ul (4.8-10.8)
[2018-03-13 12:16] LABS: BASOPHIL # 0.1 10^3/ul (0.0-0.1); BASOPHILS % 0.8 % (0.0-2.0); EOSINOPHILS # 0.6 10^3/ul (0.0-0.5); EOSINOPHILS % 7.7 % (0.0-7.0); HEMATOCRIT 36.8 % (42.0-52.0); HEMOGLOBIN 11.7 g/dl (14.0-18.0); LYMPHOCYTES # 1.5 10^3/ul (0.8-2.9); LYMPHOCYTES % 17.8 % (15.0-51.0); MEAN CORPUSCULAR HGB CONC 31.8 g/dl (32.0-37.0); MEAN CORPUSCULAR VOLUME 91.3 fl (82.0-101.0); MEAN PLATELET VOLUME 10.7 fl (7.4-10.4); MONOCYTE # 1.3 10^3/ul (0.3-0.9); MONOCYTES % 15.6 % (0.0-11.0); NEUTROPHIL # 4.7 10^3/ul (1.6-7.5); NEUTROPHILS % 56.7 % (39.0-77.0); PLATELET COUNT 124 10^3/UL (140-415); RED BLOOD COUNT 4.03 10^6/ul (4.70-6.10); RED CELL DISTRIBUTION WIDTH 14.9 % (11.5-14.5)
[2018-03-13 12:35] LABS: ANION GAP 15 (8-16); BLOOD UREA NITROGEN 41 mg/dl (7-20); CALCIUM 9.2 mg/dl (8.4-10.2); CARBON DIOXIDE 27 mmol/L (21-31); CHLORIDE 102 mmol/L (97-110); GLUCOSE 101 mg/dl (70-220); MAGNESIUM 1.4 mg/dl (1.7-2.5); PHOSPHORUS 4.1 mg/dl (2.5-4.9); POTASSIUM 4.7 mmol/L (3.5-5.1); SODIUM 139 mmol/L (135-144)
[2018-03-13] MEDS: MAGNESIUM OXIDE 400 MG TAB PO (14:38)
[2018-03-13] MEDS: ATORVASTATIN 10 MG TAB PO (21:39)
[2018-03-14] MEDS: PIPER-TAZO 2.25 GM (PMX) 50 ML IVPB ×3 (06:10→21:28)
[2018-03-14] MEDS: PANTOPRAZOLE (EC) 40 MG TAB PO (06:10)
[2018-03-14] MEDS: APIXABAN 5 MG TABLET PO ×2 (09:09→20:35)
[2018-03-14] MEDS: ASPIRIN 81 MG TAB PO (09:09)
[2018-03-14] MEDS: MUPIROCIN 2% 22 GM OINT TOP ×2 (09:10→20:36)
[2018-03-14] MEDS: FUROSEMIDE 20 MG TAB PO (09:10)
[2018-03-14 11:56] LABS: ADD MAN DIFF? NO
[2018-03-14 12:01] LABS: BASOPHIL # 0.1 10^3/ul (0.0-0.1); BASOPHILS % 0.8 % (0.0-2.0); EOSINOPHILS # 0.4 10^3/ul (0.0-0.5); EOSINOPHILS % 5.3 % (0.0-7.0); HEMATOCRIT 35.7 % (42.0-52.0); HEMOGLOBIN 11.4 g/dl (14.0-18.0); LYMPHOCYTES # 1.5 10^3/ul (0.8-2.9); LYMPHOCYTES % 20.1 % (15.0-51.0); MEAN CORPUSCULAR HEMOGLOBIN 29.1 pg (29.0-33.0); MEAN CORPUSCULAR HGB CONC 31.9 g/dl (32.0-37.0); MEAN CORPUSCULAR VOLUME 91.1 fl (82.0-101.0); MEAN PLATELET VOLUME 10.6 fl (7.4-10.4); MONOCYTE # 1.2 10^3/ul (0.3-0.9); MONOCYTES % 16.3 % (0.0-11.0); NEUTROPHIL # 4.2 10^3/ul (1.6-7.5); NEUTROPHILS % 55.5 % (39.0-77.0); PLATELET COUNT 140 10^3/UL (140-415); RED BLOOD COUNT 3.92 10^6/ul (4.70-6.10); RED CELL DISTRIBUTION WIDTH 15.1 % (11.5-14.5)
[2018-03-14 12:01] LABS: WHITE BLOOD COUNT 7.6 10^3/ul (4.8-10.8)
[2018-03-14 12:17] LABS: ANION GAP 12 (8-16); BLOOD UREA NITROGEN 37 mg/dl (7-20); CALCIUM 9.1 mg/dl (8.4-10.2); CARBON DIOXIDE 25 mmol/L (21-31); CHLORIDE 108 mmol/L (97-110); CREATININE 1.39 mg/dl (0.61-1.24); GLUCOSE 120 mg/dl (70-220); MAGNESIUM 1.5 mg/dl (1.7-2.5); PHOSPHORUS 3.5 mg/dl (2.5-4.9); POTASSIUM 4.5 mmol/L (3.5-5.1); SODIUM 140 mmol/L (135-144)
[2018-03-14] MEDS: MAGNESIUM OXIDE 400 MG TAB PO (15:37)
[2018-03-14] MEDS: ATORVASTATIN 10 MG TAB PO (20:35)
[2018-03-15] MEDS: PIPER-TAZO 2.25 GM (PMX) 50 ML IVPB (06:12)
[2018-03-15] MEDS: PANTOPRAZOLE (EC) 40 MG TAB PO (06:12)
[2018-03-15 06:24] LABS: ADD MAN DIFF? NO
[2018-03-15 06:34] LABS: BASOPHIL # 0.1 10^3/ul (0.0-0.1); BASOPHILS % 0.7 % (0.0-2.0); EOSINOPHILS # 0.4 10^3/ul (0.0-0.5); EOSINOPHILS % 4.3 % (0.0-7.0); HEMATOCRIT 34.1 % (42.0-52.0); HEMOGLOBIN 10.9 g/dl (14.0-18.0); LYMPHOCYTES # 1.7 10^3/ul (0.8-2.9); LYMPHOCYTES % 19.1 % (15.0-51.0); MEAN CORPUSCULAR VOLUME 90.7 fl (82.0-101.0); MEAN PLATELET VOLUME 10.5 fl (7.4-10.4); MONOCYTE # 1.4 10^3/ul (0.3-0.9); NEUTROPHILS % 57.8 % (39.0-77.0); PLATELET COUNT 154 10^3/UL (140-415); RED BLOOD COUNT 3.76 10^6/ul (4.70-6.10); RED CELL DISTRIBUTION WIDTH 15.1 % (11.5-14.5)
[2018-03-15 06:34] LABS: WHITE BLOOD COUNT 8.7 10^3/ul (4.8-10.8)
[2018-03-15 07:07] LABS: ANION GAP 11 (8-16); BLOOD UREA NITROGEN 39 mg/dl (7-20); CALCIUM 9.1 mg/dl (8.4-10.2); CARBON DIOXIDE 24 mmol/L (21-31); CHLORIDE 109 mmol/L (97-110); CREATININE 1.42 mg/dl (0.61-1.24); GLUCOSE 106 mg/dl (70-220); MAGNESIUM 1.4 mg/dl (1.7-2.5); PHOSPHORUS 4.3 mg/dl (2.5-4.9); SODIUM 139 mmol/L (135-144)
[2018-03-15] MEDS: APIXABAN 5 MG TABLET PO ×2 (08:49→20:14)
[2018-03-15] MEDS: ASPIRIN 81 MG TAB PO (08:49)
[2018-03-15] MEDS: FUROSEMIDE 20 MG TAB PO (08:51)
[2018-03-15] MEDS: MUPIROCIN 2% 22 GM OINT TOP ×2 (08:53→20:15)
[2018-03-15] MEDS: MAGNESIUM SULFATE 2 GM/50 ML 50 ML IVPB (10:36)
[2018-03-15] MEDS: ACETAMINOPHEN 325 MG TAB PO (18:46)
[2018-03-15] MEDS: ATORVASTATIN 10 MG TAB PO (20:13)
[2018-03-16] MEDS: PANTOPRAZOLE (EC) 40 MG TAB PO (05:13)
[2018-03-16 05:38] LABS: ADD MAN DIFF? NO
[2018-03-16 05:46] LABS: BASOPHIL # 0.1 10^3/ul (0.0-0.1); BASOPHILS % 0.8 % (0.0-2.0); EOSINOPHILS # 0.3 10^3/ul (0.0-0.5); EOSINOPHILS % 3.3 % (0.0-7.0); HEMOGLOBIN 10.1 g/dl (14.0-18.0); LYMPHOCYTES # 1.4 10^3/ul (0.8-2.9); LYMPHOCYTES % 18.2 % (15.0-51.0); MEAN CORPUSCULAR HEMOGLOBIN 28.7 pg (29.0-33.0); MEAN CORPUSCULAR HGB CONC 31.6 g/dl (32.0-37.0); MEAN CORPUSCULAR VOLUME 90.9 fl (82.0-101.0); MONOCYTE # 1.2 10^3/ul (0.3-0.9); MONOCYTES % 15.5 % (0.0-11.0); NEUTROPHIL # 4.7 10^3/ul (1.6-7.5); NEUTROPHILS % 60.5 % (39.0-77.0); PLATELET COUNT 170 10^3/UL (140-415); RED BLOOD COUNT 3.52 10^6/ul (4.70-6.10); RED CELL DISTRIBUTION WIDTH 15.5 % (11.5-14.5)
[2018-03-16 05:46] LABS: WHITE BLOOD COUNT 7.8 10^3/ul (4.8-10.8)
[2018-03-16 06:17] LABS: ANION GAP 10 (8-16); BLOOD UREA NITROGEN 36 mg/dl (7-20); CALCIUM 8.8 mg/dl (8.4-10.2); CARBON DIOXIDE 21 mmol/L (21-31); CHLORIDE 114 mmol/L (97-110); CREATININE 1.15 mg/dl (0.61-1.24); GLUCOSE 102 mg/dl (70-220); MAGNESIUM 1.7 mg/dl (1.7-2.5); PHOSPHORUS 4.2 mg/dl (2.5-4.9); POTASSIUM 4.9 mmol/L (3.5-5.1); SODIUM 140 mmol/L (135-144)
[2018-03-16] MEDS: ASPIRIN 81 MG TAB PO (09:30)
[2018-03-16] MEDS: FUROSEMIDE 20 MG TAB PO (09:33)
[2018-03-16] MEDS: MUPIROCIN 2% 22 GM OINT TOP ×2 (09:34→21:07)
[2018-03-16] MEDS: APIXABAN 5 MG TABLET PO ×2 (09:36→21:08)
[2018-03-16] MEDS: ATORVASTATIN 10 MG TAB PO (21:07)
[2018-03-17] MEDS: PANTOPRAZOLE (EC) 40 MG TAB PO (05:38)
[2018-03-17 08:07] LABS: ADD MAN DIFF? NO
[2018-03-17 08:18] LABS: BASOPHIL # 0.1 10^3/ul (0.0-0.1); BASOPHILS % 0.7 % (0.0-2.0); EOSINOPHILS # 0.3 10^3/ul (0.0-0.5); EOSINOPHILS % 3.1 % (0.0-7.0); HEMATOCRIT 32.7 % (42.0-52.0); HEMOGLOBIN 10.2 g/dl (14.0-18.0); LYMPHOCYTES # 1.6 10^3/ul (0.8-2.9); LYMPHOCYTES % 20.4 % (15.0-51.0); MEAN CORPUSCULAR HEMOGLOBIN 28.5 pg (29.0-33.0); MEAN CORPUSCULAR HGB CONC 31.2 g/dl (32.0-37.0); MEAN CORPUSCULAR VOLUME 91.3 fl (82.0-101.0); MEAN PLATELET VOLUME 10.8 fl (7.4-10.4); MONOCYTE # 1.2 10^3/ul (0.3-0.9); NEUTROPHIL # 4.8 10^3/ul (1.6-7.5); NEUTROPHILS % 59.9 % (39.0-77.0); PLATELET COUNT 191 10^3/UL (140-415); RED BLOOD COUNT 3.58 10^6/ul (4.70-6.10); RED CELL DISTRIBUTION WIDTH 15.6 % (11.5-14.5)
[2018-03-17 08:58] LABS: ANION GAP 11 (8-16); BLOOD UREA NITROGEN 32 mg/dl (7-20); CALCIUM 8.9 mg/dl (8.4-10.2); CARBON DIOXIDE 21 mmol/L (21-31); CHLORIDE 112 mmol/L (97-110); CREATININE 1.13 mg/dl (0.61-1.24); GLUCOSE 104 mg/dl (70-220); MAGNESIUM 1.5 mg/dl (1.7-2.5); PHOSPHORUS 4.4 mg/dl (2.5-4.9); POTASSIUM 4.5 mmol/L (3.5-5.1); SODIUM 139 mmol/L (135-144)
[2018-03-17] MEDS: MUPIROCIN 2% 22 GM OINT TOP ×2 (09:25→20:42)
[2018-03-17] MEDS: ASPIRIN 81 MG TAB PO (09:25)
[2018-03-17] MEDS: APIXABAN 5 MG TABLET PO ×2 (09:26→20:40)
[2018-03-17] MEDS: FUROSEMIDE 20 MG TAB PO (09:26)
[2018-03-17] MEDS: MAGNESIUM OXIDE 400 MG TAB PO (13:21)
[2018-03-17] MEDS: ATORVASTATIN 10 MG TAB PO (20:40)
[2018-03-18] MEDS: PANTOPRAZOLE (EC) 40 MG TAB PO (05:09)
[2018-03-18 05:57] LABS: ADD MAN DIFF? NO
[2018-03-18 06:05] LABS: BASOPHIL # 0.1 10^3/ul (0.0-0.1); EOSINOPHILS # 0.2 10^3/ul (0.0-0.5); EOSINOPHILS % 2.9 % (0.0-7.0); HEMATOCRIT 32.3 % (42.0-52.0); HEMOGLOBIN 10.3 g/dl (14.0-18.0); LYMPHOCYTES # 1.7 10^3/ul (0.8-2.9); LYMPHOCYTES % 21.6 % (15.0-51.0); MEAN CORPUSCULAR HEMOGLOBIN 29.2 pg (29.0-33.0); MEAN CORPUSCULAR HGB CONC 31.9 g/dl (32.0-37.0); MEAN CORPUSCULAR VOLUME 91.5 fl (82.0-101.0); MEAN PLATELET VOLUME 11.7 fl (7.4-10.4); MONOCYTES % 13.6 % (0.0-11.0); NEUTROPHIL # 4.6 10^3/ul (1.6-7.5); NEUTROPHILS % 60.2 % (39.0-77.0); PLATELET COUNT 198 10^3/UL (140-415); RED BLOOD COUNT 3.53 10^6/ul (4.70-6.10); RED CELL DISTRIBUTION WIDTH 15.9 % (11.5-14.5)
[2018-03-18 06:05] LABS: WHITE BLOOD COUNT 7.7 10^3/ul (4.8-10.8)
[2018-03-18 08:12] LABS: ANION GAP 12 (8-16); BLOOD UREA NITROGEN 40 mg/dl (7-20); CALCIUM 9.1 mg/dl (8.4-10.2); CARBON DIOXIDE 20 mmol/L (21-31); CHLORIDE 114 mmol/L (97-110); CREATININE 1.15 mg/dl (0.61-1.24); GLUCOSE 102 mg/dl (70-220); MAGNESIUM 1.4 mg/dl (1.7-2.5); PHOSPHORUS 4.5 mg/dl (2.5-4.9); POTASSIUM 4.5 mmol/L (3.5-5.1); SODIUM 141 mmol/L (135-144)
[2018-03-18] MEDS: APIXABAN 5 MG TABLET PO ×2 (09:23→20:13)
[2018-03-18] MEDS: FUROSEMIDE 20 MG TAB PO (09:23)
[2018-03-18] MEDS: ASPIRIN 81 MG TAB PO (09:24)
[2018-03-18] MEDS: MUPIROCIN 2% 22 GM OINT TOP ×2 (09:24→20:12)
[2018-03-18] MEDS: MAGNESIUM OXIDE 400 MG TAB PO (09:34)
[2018-03-18] MEDS: MAGNESIUM SULFATE 2 GM/50 ML 50 ML IVPB (11:59)
[2018-03-18] MEDS: ATORVASTATIN 10 MG TAB PO (20:12)
[2018-03-19] MEDS: PANTOPRAZOLE (EC) 40 MG TAB PO (05:13)
[2018-03-19 06:33] LABS: ANION GAP 12 (8-16); BLOOD UREA NITROGEN 41 mg/dl (7-20); CALCIUM 9.3 mg/dl (8.4-10.2); CARBON DIOXIDE 19 mmol/L (21-31); CHLORIDE 113 mmol/L (97-110); CREATININE 1.07 mg/dl (0.61-1.24); GLUCOSE 103 mg/dl (70-220); MAGNESIUM 1.8 mg/dl (1.7-2.5); PHOSPHORUS 4.5 mg/dl (2.5-4.9); POTASSIUM 4.6 mmol/L (3.5-5.1); SODIUM 139 mmol/L (135-144)
[2018-03-19] MEDS: MUPIROCIN 2% 22 GM OINT TOP ×2 (09:52→20:43)
[2018-03-19] MEDS: FUROSEMIDE 20 MG TAB PO (09:52)
[2018-03-19] MEDS: MAGNESIUM OXIDE 400 MG TAB PO (09:52)
[2018-03-19] MEDS: APIXABAN 5 MG TABLET PO ×2 (09:53→20:42)
[2018-03-19] MEDS: ASPIRIN 81 MG TAB PO (09:53)
[2018-03-19] MEDS: ATORVASTATIN 10 MG TAB PO (20:42)
[2018-03-20] MEDS: PANTOPRAZOLE (EC) 40 MG TAB PO (05:17)
[2018-03-20 06:23] LABS: ANION GAP 11 (8-16); BLOOD UREA NITROGEN 44 mg/dl (7-20); CALCIUM 9.6 mg/dl (8.4-10.2); CARBON DIOXIDE 21 mmol/L (21-31); CHLORIDE 114 mmol/L (97-110); CREATININE 1.12 mg/dl (0.61-1.24); GLUCOSE 101 mg/dl (70-220); MAGNESIUM 1.6 mg/dl (1.7-2.5); PHOSPHORUS 4.9 mg/dl (2.5-4.9); POTASSIUM 4.7 mmol/L (3.5-5.1); SODIUM 141 mmol/L (135-144)
[2018-03-20] MEDS: MAGNESIUM OXIDE 400 MG TAB PO (08:49)
[2018-03-20] MEDS: ASPIRIN 81 MG TAB PO (08:49)
[2018-03-20] MEDS: APIXABAN 5 MG TABLET PO ×2 (08:49→20:46)
[2018-03-20] MEDS: MUPIROCIN 2% 22 GM OINT TOP ×2 (08:50→20:47)
[2018-03-20] MEDS: MAGNESIUM SULFATE 2 GM/50 ML 50 ML IVPB (10:59)
[2018-03-20] MEDS: ATORVASTATIN 10 MG TAB PO (20:46)
[2018-03-21] MEDS: PANTOPRAZOLE (EC) 40 MG TAB PO (05:35)
[2018-03-21 06:50] LABS: ANION GAP 11 (8-16); BLOOD UREA NITROGEN 40 mg/dl (7-20); CALCIUM 9.3 mg/dl (8.4-10.2); CARBON DIOXIDE 20 mmol/L (21-31); CHLORIDE 115 mmol/L (97-110); CREATININE 1.02 mg/dl (0.61-1.24); GLUCOSE 109 mg/dl (70-220); MAGNESIUM 1.8 mg/dl (1.7-2.5); PHOSPHORUS 4.7 mg/dl (2.5-4.9); POTASSIUM 4.6 mmol/L (3.5-5.1); SODIUM 141 mmol/L (135-144)
[2018-03-21] MEDS: APIXABAN 5 MG TABLET PO ×2 (08:56→20:48)
[2018-03-21] MEDS: ASPIRIN 81 MG TAB PO (08:56)
[2018-03-21] MEDS: MAGNESIUM OXIDE 400 MG TAB PO (08:56)
[2018-03-21] MEDS: MUPIROCIN 2% 22 GM OINT TOP ×2 (08:57→20:48)
[2018-03-21] MEDS: ATORVASTATIN 10 MG TAB PO (20:47)
[2018-03-22] MEDS: PANTOPRAZOLE (EC) 40 MG TAB PO (06:13)
[2018-03-22 07:06] LABS: ANION GAP 12 (8-16); BLOOD UREA NITROGEN 37 mg/dl (7-20); CALCIUM 9.5 mg/dl (8.4-10.2); CARBON DIOXIDE 19 mmol/L (21-31); CHLORIDE 114 mmol/L (97-110); CREATININE 1.09 mg/dl (0.61-1.24); GLUCOSE 107 mg/dl (70-220); MAGNESIUM 1.6 mg/dl (1.7-2.5); PHOSPHORUS 4.8 mg/dl (2.5-4.9); POTASSIUM 4.6 mmol/L (3.5-5.1); SODIUM 140 mmol/L (135-144)
[2018-03-22] MEDS: MUPIROCIN 2% 22 GM OINT TOP (08:00)
[2018-03-22] MEDS: ASPIRIN 81 MG TAB PO (08:01)
[2018-03-22] MEDS: MAGNESIUM OXIDE 400 MG TAB PO (08:01)
[2018-03-22] MEDS: APIXABAN 5 MG TABLET PO ×2 (08:01→20:42)
[2018-03-22] MEDS: MAGNESIUM SULFATE 2 GM/50 ML 50 ML IVPB (10:11)
[2018-03-22] MEDS: ATORVASTATIN 10 MG TAB PO (20:42)
[2018-03-23] MEDS: PANTOPRAZOLE (EC) 40 MG TAB PO (05:43)
[2018-03-23] MEDS: ASPIRIN 81 MG TAB PO (08:19)
[2018-03-23] MEDS: APIXABAN 5 MG TABLET PO ×2 (08:19→21:52)
[2018-03-23] MEDS: MAGNESIUM OXIDE 400 MG TAB PO (08:19)
[2018-03-23] MEDS: ATORVASTATIN 10 MG TAB PO (21:52)
[2018-03-24] MEDS: PANTOPRAZOLE (EC) 40 MG TAB PO (05:22)
[2018-03-24 05:54] LABS: ANION GAP 11 (8-16); BLOOD UREA NITROGEN 35 mg/dl (7-20); CALCIUM 9.4 mg/dl (8.4-10.2); CARBON DIOXIDE 19 mmol/L (21-31); CHLORIDE 116 mmol/L (97-110); CREATININE 1.04 mg/dl (0.61-1.24); GLUCOSE 99 mg/dl (70-220); MAGNESIUM 1.5 mg/dl (1.7-2.5); PHOSPHORUS 4.7 mg/dl (2.5-4.9); POTASSIUM 4.6 mmol/L (3.5-5.1); SODIUM 141 mmol/L (135-144)
[2018-03-24] MEDS: MAGNESIUM OXIDE 400 MG TAB PO (08:24)
[2018-03-24] MEDS: ASPIRIN 81 MG TAB PO (08:24)
[2018-03-24] MEDS: APIXABAN 5 MG TABLET PO (08:24)
== END 2018-03-24 19:30 | DRG 208 ==
LOC: MS2 03-10 16:56 → E/R 12:01 → ICU 13:36
PROVIDERS: Internal Medicine
PROC: 5A1945Z Respiratory Ventilation, 24-96 Consecutive Hours (ICD-10-PCS; 2018-03-05)
PROC: 0BH17EZ Insertion of Endotracheal Airway into Trachea, Via Natural or Artificial Opening (ICD-10-PCS; 2018-03-05)
PROC: 02HV33Z Insertion of Infusion Device into Superior Vena Cava, Percutaneous Approach (ICD-10-PCS; principal; 2018-03-06)
DX: I26.99 Other pulmonary embolism without acute cor pulmonale (principal); J96.01 Acute respiratory failure with hypoxia; G93.41 Metabolic encephalopathy; I50.23 Acute on chronic systolic (congestive) heart failure; K86.1 Other chronic pancreatitis; N17.9 Acute kidney failure, unspecified; E87.2 Acidosis; R57.9 Shock, unspecified; E87.3 Alkalosis; I16.1 Hypertensive emergency; I11.0 Hypertensive heart disease with heart failure; F17.200 Nicotine dependence, unspecified, uncomplicated; E87.5 Hyperkalemia; I25.5 Ischemic cardiomyopathy; B18.2 Chronic viral hepatitis C; E16.2 Hypoglycemia, unspecified; Z59.0 Homelessness; E83.42 Hypomagnesemia; E83.9 Disorder of mineral metabolism, unspecified; F32.89 Other specified depressive episodes
CPT/HCPCS: 31500; 36415; 36569; 36600; 71045; 71275; 76705; 76775; 76937; 78226; 80048; 80053; 80076; 80202; 81001; 81003; 82043; 82803; 82962; 83605; 83690; 83735; 83880; 84100; 84155; 84300; 84484; 85014; 85018; 85025; 85610; 85730; 86703; 86704; 86709; 86803; 87040; 87081; 87340; 92526; 92610; 93005; 93308; 94002; 94003; 94640; 94644; 94660; 94770; 96374; 96375; 97110; 97116; 97163; 97530; 99291-25

== ENCOUNTER 2018-06-25 15:30 | Emergency (ER) | payer OTHER ==
[2018-06-25] MEDS: IBUPROFEN 800 MG TAB PO (15:48)
== END 2018-06-25 17:33 | disposition home or self-care (01) ==
LOC: E/R 15:30
DX: M54.2 Cervicalgia (principal); I50.9 Heart failure, unspecified; I10 Essential (primary) hypertension; E11.9 Type 2 diabetes mellitus without complications; Z79.01 Long term (current) use of anticoagulants; Z79.82 Long term (current) use of aspirin
CPT/HCPCS: 99282; Z7502